=== PATIENT | male | born 1975 | race Two or more races ===

== ENCOUNTER 2020-05-06 15:40 | Inpatient (IN) | payer OTHER ==
[2020-05-06 16:27] VITALS: BMI 31.3
[2020-05-06] MEDS ORDERED: ONDANSETRON *ODT* 4 MG TABLET SL PRN (21:02)
[2020-05-06] MEDS ORDERED: MAGNESIUM CITRATE 300 ML BOTTLE PO PRN (21:02)
[2020-05-06] MEDS ORDERED: MENTHOL/PHENOL 1 EACH UD MM PRN (21:02)
[2020-05-06] MEDS ORDERED: guaiFENesin 200 MG/10 ML 10 ML UNIT-DOSE CUPS PO PRN (21:02)
[2020-05-06] MEDS ORDERED: P-EPHED 60MG/TRIPROLIDI 2.5MG TABLET PO PRN (21:02)
[2020-05-06] MEDS ORDERED: MAG HYDROX/AL HYDROX/SIMETH 30 ML UNIT-DOSE CUP PO PRN (21:02)
[2020-05-06] MEDS ORDERED: METHOCARBAMOL 500 MG TABLET PO PRN (21:02)
[2020-05-06] MEDS ORDERED: chlordiazePOXIDE HCL 25 MG CAPSULE PO PRN (21:02)
[2020-05-06] MEDS ORDERED: IBUPROFEN 400 MG TABLET (FP) PO PRN (21:02)
[2020-05-06] MEDS ORDERED: MAGNESIUM HYDROX 2400MG/30ML ORAL SUSPENSION 30 ML CUP PO PRN (21:02)
[2020-05-06] MEDS ORDERED: BISMUTH SUBSALICYLATE 524 MG/30 ML UD PO PRN (21:02)
[2020-05-06] MEDS ORDERED: DICYCLOMINE HCL 10 MG CAPSULE PO PRN (21:02)
[2020-05-06] MEDS ORDERED: ACETAMINOPHEN 325 MG TABLET (FP) PO PRN ×2 (21:02)
[2020-05-06] MEDS ORDERED: chlordiazePOXIDE HCL 25 MG CAPSULE PO ONE (21:07)
[2020-05-06] MEDS: MELATONIN 5 MG TABLETS PO SCH (21:58)
[2020-05-06] MEDS: hydrOXYzine PAMOATE 25 MG CAPSULE (FP) PO SCH (21:59)
[2020-05-06] MEDS: THIAMINE HCL 100 MG TABLET (FP) PO SCH (21:59)
[2020-05-06] MEDS: chlordiazePOXIDE HCL 25 MG CAPSULE PO SCH (22:50)
[2020-05-07] MEDS: hydrOXYzine PAMOATE 25 MG CAPSULE (FP) PO SCH ×5 (05:20→22:33)
[2020-05-07] MEDS: chlordiazePOXIDE HCL 25 MG CAPSULE PO SCH ×4 (05:20→22:33)
[2020-05-07 09:52] LABS: POTASSIUM 3.3 mmol/L (3.5-5.1)
[2020-05-07 09:57] LABS: CALCIUM 9.1 mg/dL (8.5-10.1); HEMATOCRIT 40.5 % (35.4-49); HEMOGLOBIN 14.2 GM/dL (11.7-16.9); MCH 30.1 pg (25.7-33.7); MEAN CELL VOLUME 85.9 fl (80-96); MEAN PLT VOLUME 8.1 fl (7.5-11.1); PLATELET COUNT 185 K/MM3 (134-434); RBC 4.71 M/mm3 (4.00-5.60); RDW 14.4 % (11.9-15.9); WHITE BLOOD COUNT 6.2 K/mm3 (4.0-10.0)
[2020-05-07 09:58] LABS: ALBUMIN 3.6 g/dl (3.4-5.0); PH,URINE 5.5 (5.0-8.0); URINE APPEARANCE CLOUDY; URINE BILIRUBIN 1+ (NEGATIVE); URINE COLOR DK YELLOW; URINE GLUCOSE (UA) NEGATIVE (NEGATIVE); URINE KETONE TRACE (NEGATIVE); URINE LEUK ESTERASE NEGATIVE (NEGATIVE); URINE NITRITE NEGATIVE (NEGATIVE); URINE PROTEIN NEGATIVE (NEGATIVE)
[2020-05-07 10:02] LABS: CREATININE 0.9 mg/dL (0.55-1.3)
[2020-05-07 10:04] LABS: BILIRUBIN,TOTAL 1.1 mg/dL (0.2-1)
[2020-05-07] MEDS: PRENATAL VITAMINS W/ FOLIC ACID TABLET (FP) PO SCH (10:39)
[2020-05-07 11:01] LABS: HIV INTERPRETATION NEGATIVE (NEGATIVE)
[2020-05-07] MEDS ORDERED: POTASSIUM CHLORIDE TABS 20 MEQ TABLET.ER (FP) PO ONE ×2 (14:00→18:00)
[2020-05-07] MEDS: MELATONIN 5 MG TABLETS PO SCH (22:33)
[2020-05-07] MEDS: THIAMINE HCL 100 MG TABLET (FP) PO SCH (22:33)
[2020-05-07] MEDS: ARIPiprazole 2 MG TABLET PO SCH (22:33)
[2020-05-08] MEDS: chlordiazePOXIDE HCL 25 MG CAPSULE PO SCH ×4 (05:51→22:01)
[2020-05-08] MEDS: hydrOXYzine PAMOATE 25 MG CAPSULE (FP) PO SCH ×5 (05:52→22:00)
[2020-05-08] MEDS: PRENATAL VITAMINS W/ FOLIC ACID TABLET (FP) PO SCH (10:35)
[2020-05-08] MEDS: FLUoxetine HCL 20 MG CAPSULE PO SCH (10:35)
[2020-05-08] MEDS: ARIPiprazole 2 MG TABLET PO SCH (22:01)
[2020-05-08] MEDS: THIAMINE HCL 100 MG TABLET (FP) PO SCH (22:01)
[2020-05-08] MEDS: MELATONIN 5 MG TABLETS PO SCH (22:01)
[2020-05-09] MEDS ORDERED: chlordiazePOXIDE HCL 10 MG CAPSULE PO PRN
[2020-05-09] MEDS: chlordiazePOXIDE HCL 10 MG CAPSULE PO SCH ×4 (05:41→22:19)
[2020-05-09] MEDS: hydrOXYzine PAMOATE 25 MG CAPSULE (FP) PO SCH ×5 (05:41→22:19)
[2020-05-09] MEDS: PRENATAL VITAMINS W/ FOLIC ACID TABLET (FP) PO SCH (10:10)
[2020-05-09] MEDS: FLUoxetine HCL 20 MG CAPSULE PO SCH (10:10)
[2020-05-09] MEDS: THIAMINE HCL 100 MG TABLET (FP) PO SCH (22:20)
[2020-05-09] MEDS: MELATONIN 5 MG TABLETS PO SCH (22:20)
[2020-05-09] MEDS: ARIPiprazole 2 MG TABLET PO SCH (22:20)
[2020-05-10] MEDS ORDERED: chlordiazePOXIDE HCL 10 MG CAPSULE PO ONE (05:00)
[2020-05-10] MEDS ORDERED: chlordiazePOXIDE HCL 10 MG CAPSULE PO SCH (05:00)
[2020-05-10] MEDS: hydrOXYzine PAMOATE 25 MG CAPSULE (FP) PO SCH ×2 (05:49→07:38)
[2020-05-10 09:55] VITALS: BP 100/71; PULSE 99; TEMP 97.6
[2020-05-11] MEDS ORDERED: chlordiazePOXIDE HCL 10 MG CAPSULE PO ONE (05:00)
== END 2020-05-10 09:08 | disposition home or self-care (01) | DRG 773 ==
LOC: YASAS 15:40 → Y3N 18:57
PROVIDERS: ADMIT Allergy & Immunology; ATTEND Allergy & Immunology
PROC: HZ2ZZZZ Detoxification Services for Substance Abuse Treatment (ICD-10-PCS; principal; 2020-05-06)
DX: F10.230 Alcohol dependence with withdrawal, uncomplicated (principal); F11.10 Opioid abuse, uncomplicated; F19.24 Other psychoactive substance dependence with psychoactive substance-induced mood disorder; F32.9 Major depressive disorder, single episode, unspecified; E87.6 Hypokalemia; G40.509 Epileptic seizures related to external causes, not intractable, without status epilepticus; R25.3 Fasciculation; Z98.890 Other specified postprocedural states; Z56.0 Unemployment, unspecified
CPT/HCPCS: 36415; 80053; 81003; 84132; 85027; 86593; 86780; 87389; 93005; 93010; C9803; Q0162; U0003

== ENCOUNTER 2020-05-24 11:46 | Inpatient (IN) | payer OTHER ==
[2020-05-24 14:18] VITALS: BMI 33.2
[2020-05-24] MEDS ORDERED: MENTHOL/PHENOL 1 EACH UD MM PRN (14:46)
[2020-05-24] MEDS ORDERED: NICOTINE POLACRILEX 2 MG GUM BUC PRN (14:46)
[2020-05-24] MEDS ORDERED: ACETAMINOPHEN 325 MG TABLET (FP) PO PRN ×2 (14:46)
[2020-05-24] MEDS ORDERED: IBUPROFEN 400 MG TABLET (FP) PO PRN (14:46)
[2020-05-24] MEDS ORDERED: BISMUTH SUBSALICYLATE 262 MG/15 ML BTL PO PRN (14:46)
[2020-05-24] MEDS ORDERED: chlordiazePOXIDE HCL 25 MG CAPSULE PO PRN (14:46)
[2020-05-24] MEDS ORDERED: MAGNESIUM CITRATE 300 ML BOTTLE PO PRN (14:46)
[2020-05-24] MEDS ORDERED: MAGNESIUM HYDROX 2400MG/30ML ORAL SUSPENSION 30 ML CUP PO PRN (14:46)
[2020-05-24] MEDS ORDERED: METHOCARBAMOL 500 MG TABLET PO PRN (14:46)
[2020-05-24] MEDS ORDERED: MAG HYDROX/AL HYDROX/SIMETH 30 ML UNIT-DOSE CUP PO PRN (14:46)
[2020-05-24] MEDS ORDERED: ONDANSETRON *ODT* 4 MG TABLET SL PRN (14:46)
[2020-05-24] MEDS: PRENATAL VITAMINS W/ FOLIC ACID TABLET (FP) PO SCH (15:39)
[2020-05-24] MEDS: levETIRAcetam 500 MG TABLET (FP) PO SCH (15:48)
[2020-05-24] MEDS: hydrOXYzine PAMOATE 25 MG CAPSULE (FP) PO SCH ×2 (17:59→22:38)
[2020-05-24] MEDS: chlordiazePOXIDE HCL 25 MG CAPSULE PO SCH ×2 (17:59→22:37)
[2020-05-24 18:03] LABS: POTASSIUM 3.6 mmol/L (3.5-5.1)
[2020-05-24 18:06] LABS: ALBUMIN 4.1 g/dl (3.4-5.0); BLOOD UREA NITROGEN 9.9 mg/dL (7-18); CALCIUM 8.7 mg/dL (8.5-10.1)
[2020-05-24 18:08] LABS: CREATININE 0.9 mg/dL (0.55-1.3); HEMATOCRIT 46.7 % (35.4-49); HEMOGLOBIN 16.2 GM/dL (11.7-16.9); MCHC 34.6 g/dl (32.0-35.9); MEAN CELL VOLUME 86.7 fl (80-96); MEAN PLT VOLUME 7.9 fl (7.5-11.1); PLATELET COUNT 335 K/MM3 (134-434); RBC 5.38 M/mm3 (4.00-5.60); RDW 14.8 % (11.9-15.9); WHITE BLOOD COUNT 8.1 K/mm3 (4.0-10.0)
[2020-05-24 18:11] LABS: BILIRUBIN,TOTAL 0.3 mg/dL (0.2-1); TOT PROT 8.1 g/dl (6.4-8.2)
[2020-05-24] MEDS: THIAMINE HCL 100 MG TABLET (FP) PO SCH (22:38)
[2020-05-24] MEDS: MELATONIN 5 MG TABLETS PO SCH (22:38)
[2020-05-25] MEDS: hydrOXYzine PAMOATE 25 MG CAPSULE (FP) PO SCH ×5 (05:50→22:45)
[2020-05-25] MEDS: chlordiazePOXIDE HCL 25 MG CAPSULE PO SCH ×4 (05:50→22:46)
[2020-05-25] MEDS: levETIRAcetam 500 MG TABLET (FP) PO SCH (10:21)
[2020-05-25] MEDS: PRENATAL VITAMINS W/ FOLIC ACID TABLET (FP) PO SCH (10:25)
[2020-05-25] MEDS: FLUoxetine HCL 20 MG CAPSULE PO SCH (11:28)
[2020-05-25] MEDS ORDERED: ARIPiprazole 2 MG TABLET PO SCH (22:00)
[2020-05-25] MEDS: MELATONIN 5 MG TABLETS PO SCH (22:45)
[2020-05-25] MEDS: THIAMINE HCL 100 MG TABLET (FP) PO SCH (22:46)
[2020-05-26] MEDS: hydrOXYzine PAMOATE 25 MG CAPSULE (FP) PO SCH ×2 (05:46→09:24)
[2020-05-26] MEDS: chlordiazePOXIDE HCL 25 MG CAPSULE PO SCH ×2 (05:47→10:02)
[2020-05-26] MEDS: levETIRAcetam 500 MG TABLET (FP) PO SCH (09:23)
[2020-05-26] MEDS: FLUoxetine HCL 20 MG CAPSULE PO SCH (09:23)
[2020-05-26] MEDS: PRENATAL VITAMINS W/ FOLIC ACID TABLET (FP) PO SCH (09:24)
[2020-05-26 09:37] VITALS: BP 118/77; PULSE 102; TEMP 98.2
[2020-05-26] MEDS ORDERED: MASKS NR ONE (09:50)
[2020-05-27] MEDS ORDERED: chlordiazePOXIDE HCL 10 MG CAPSULE PO PRN
[2020-05-27] MEDS ORDERED: chlordiazePOXIDE HCL 10 MG CAPSULE PO SCH (05:00)
[2020-05-28] MEDS ORDERED: chlordiazePOXIDE HCL 10 MG CAPSULE PO SCH (05:00)
[2020-05-29] MEDS ORDERED: chlordiazePOXIDE HCL 10 MG CAPSULE PO ONE (05:00)
== END 2020-05-26 10:08 | disposition left against medical advice (07) | DRG 770 ==
LOC: YASAS 11:46 → Y6N 14:49
PROVIDERS: ADMIT Allergy & Immunology; ATTEND Allergy & Immunology
PROC: HZ2ZZZZ Detoxification Services for Substance Abuse Treatment (ICD-10-PCS; principal; 2020-05-24)
DX: F10.230 Alcohol dependence with withdrawal, uncomplicated (principal); F10.282 Alcohol dependence with alcohol-induced sleep disorder; F10.24 Alcohol dependence with alcohol-induced mood disorder; F33.2 Major depressive disorder, recurrent severe without psychotic features; R56.1 Post traumatic seizures; Z87.81 Personal history of (healed) traumatic fracture; Z86.11 Personal history of tuberculosis; Z56.0 Unemployment, unspecified; Z59.0 Homelessness
CPT/HCPCS: 36415; 80053; 80177; 85027; 86593; 86780; C9803; U0003

== ENCOUNTER 2020-07-05 13:28 | Inpatient (IN) | payer OTHER ==
[2020-07-05 14:38] VITALS: BMI 32.6
[2020-07-05] MEDS ORDERED: chlordiazePOXIDE HCL 25 MG CAPSULE ONE ×2 (14:49→20:39)
[2020-07-05] MEDS ORDERED: chlordiazePOXIDE HCL 25 MG CAPSULE PO ONE (14:52)
[2020-07-05] MEDS ORDERED: MAGNESIUM CITRATE 300 ML BOTTLE PO PRN (20:31)
[2020-07-05] MEDS ORDERED: chlordiazePOXIDE HCL 25 MG CAPSULE PO PRN (20:31)
[2020-07-05] MEDS ORDERED: ONDANSETRON *ODT* 4 MG TABLET SL PRN (20:31)
[2020-07-05] MEDS ORDERED: guaiFENesin 200 MG/10 ML 10 ML UNIT-DOSE CUPS PO PRN (20:31)
[2020-07-05] MEDS ORDERED: BISMUTH SUBSALICYLATE 524 MG/30 ML UD PO PRN (20:31)
[2020-07-05] MEDS ORDERED: MAG HYDROX/AL HYDROX/SIMETH 30 ML UNIT-DOSE CUP PO PRN (20:31)
[2020-07-05] MEDS ORDERED: P-EPHED 60MG/TRIPROLIDI 2.5MG TABLET PO PRN (20:31)
[2020-07-05] MEDS ORDERED: MENTHOL/PHENOL 1 EACH UD MM PRN (20:31)
[2020-07-05] MEDS ORDERED: MAGNESIUM HYDROX 2400MG/30ML ORAL SUSPENSION 30 ML CUP PO PRN (20:31)
[2020-07-05] MEDS ORDERED: DICYCLOMINE HCL 10 MG CAPSULE PO PRN (20:31)
[2020-07-05] MEDS ORDERED: ACETAMINOPHEN 325 MG TABLET (FP) PO PRN ×2 (20:31)
[2020-07-05] MEDS: THIAMINE HCL 100 MG TABLET (FP) PO SCH (22:16)
[2020-07-05] MEDS: MELATONIN 5 MG TABLETS PO SCH (22:16)
[2020-07-05] MEDS: chlordiazePOXIDE HCL 25 MG CAPSULE PO SCH (22:16)
[2020-07-06] MEDS: chlordiazePOXIDE HCL 25 MG CAPSULE PO SCH ×4 (05:20→22:21)
[2020-07-06] MEDS: PRENATAL VITAMINS W/ FOLIC ACID TABLET (FP) PO SCH (10:21)
[2020-07-06] MEDS: IBUPROFEN 400 MG TABLET (FP) PO PRN (17:38)
[2020-07-06] MEDS: MELATONIN 5 MG TABLETS PO SCH (22:21)
[2020-07-06] MEDS: THIAMINE HCL 100 MG TABLET (FP) PO SCH (22:21)
[2020-07-07] MEDS: chlordiazePOXIDE HCL 25 MG CAPSULE PO SCH ×4 (05:26→22:09)
[2020-07-07] MEDS: PRENATAL VITAMINS W/ FOLIC ACID TABLET (FP) PO SCH (10:33)
[2020-07-07] MEDS ORDERED: chlordiazePOXIDE HCL 10 MG CAPSULE PO SCH (17:00)
[2020-07-07] MEDS: THIAMINE HCL 100 MG TABLET (FP) PO SCH (22:09)
[2020-07-07] MEDS: MELATONIN 5 MG TABLETS PO SCH (22:09)
[2020-07-08] MEDS ORDERED: chlordiazePOXIDE HCL 10 MG CAPSULE PO PRN
[2020-07-08] MEDS ORDERED: chlordiazePOXIDE HCL 10 MG CAPSULE PO SCH ×2 (05:00→22:00)
[2020-07-08] MEDS: chlordiazePOXIDE HCL 10 MG CAPSULE PO SCH ×2 (05:38→17:45)
[2020-07-08] MEDS: PRENATAL VITAMINS W/ FOLIC ACID TABLET (FP) PO SCH (10:18)
[2020-07-08] MEDS: METHOCARBAMOL 500 MG TABLET PO PRN ×2 (10:19→17:44)
[2020-07-08] MEDS: MELATONIN 5 MG TABLETS PO SCH (21:36)
[2020-07-08] MEDS: THIAMINE HCL 100 MG TABLET (FP) PO SCH (21:36)
[2020-07-09] MEDS ORDERED: chlordiazePOXIDE HCL 10 MG CAPSULE PO SCH (05:00)
[2020-07-09] MEDS ORDERED: chlordiazePOXIDE HCL 10 MG CAPSULE PO ONE (05:00)
[2020-07-09 06:23] VITALS: BP 120/82; PULSE 77; TEMP 98.2
[2020-07-09 10:06] LABS: SARS-CoV-2 NAA Not Detected (Not Detected)
[2020-07-09] MEDS: PRENATAL VITAMINS W/ FOLIC ACID TABLET (FP) PO SCH (10:31)
[2020-07-09] MEDS: IBUPROFEN 400 MG TABLET (FP) PO PRN (10:31)
[2020-07-10] MEDS ORDERED: chlordiazePOXIDE HCL 10 MG CAPSULE PO ONE (05:00)
== END 2020-07-09 11:47 | disposition home or self-care (01) | DRG 775 ==
LOC: YASAS 13:28 → Y3N 20:37
PROVIDERS: ADMIT Allergy & Immunology; ATTEND Allergy & Immunology
PROC: HZ2ZZZZ Detoxification Services for Substance Abuse Treatment (ICD-10-PCS; principal; 2020-07-05)
DX: F10.230 Alcohol dependence with withdrawal, uncomplicated (principal); F10.282 Alcohol dependence with alcohol-induced sleep disorder; F10.24 Alcohol dependence with alcohol-induced mood disorder; E83.51 Hypocalcemia; G40.509 Epileptic seizures related to external causes, not intractable, without status epilepticus; R74.01 Elevation of levels of liver transaminase levels; R25.3 Fasciculation; R73.9 Hyperglycemia, unspecified; R45.89 Other symptoms and signs involving emotional state; Z86.19 Personal history of other infectious and parasitic diseases; Z91.14 Patient's other noncompliance with medication regimen
CPT/HCPCS: 36415; 71046-TC-FY; 80053; 83735; 84484; 85025; 86593; 86780; 93005; 93010; C9803; U0003; U0005

== ENCOUNTER 2020-08-07 14:18 | Inpatient (IN) | payer OTHER ==
[2020-08-07 15:53] VITALS: BMI 32.1
[2020-08-07] MEDS ORDERED: chlordiazePOXIDE HCL 25 MG CAPSULE PO SCH (17:00)
[2020-08-07] MEDS ORDERED: MAGNESIUM CITRATE 300 ML BOTTLE PO PRN (17:18)
[2020-08-07] MEDS ORDERED: IBUPROFEN 400 MG TABLET (FP) PO PRN (17:18)
[2020-08-07] MEDS ORDERED: BISMUTH SUBSALICYLATE 524 MG/30 ML PO PRN (17:18)
[2020-08-07] MEDS ORDERED: ONDANSETRON *ODT* 4 MG TABLET SL PRN (17:18)
[2020-08-07] MEDS ORDERED: METHOCARBAMOL 500 MG TABLET PO PRN (17:18)
[2020-08-07] MEDS ORDERED: MAGNESIUM HYDROX 2400MG/30ML ORAL SUSPENSION 30 ML CUP PO PRN (17:18)
[2020-08-07] MEDS ORDERED: MAG HYDROX/AL HYDROX/SIMETH 30 ML UNIT-DOSE CUP PO PRN (17:18)
[2020-08-07] MEDS ORDERED: MENTHOL/PHENOL 1 EACH UD MM PRN (17:18)
[2020-08-07] MEDS ORDERED: ACETAMINOPHEN 325 MG TABLET (FP) PO PRN ×2 (17:18)
[2020-08-07] MEDS ORDERED: chlordiazePOXIDE HCL 25 MG CAPSULE PO PRN (17:19)
[2020-08-07] MEDS ORDERED: diazePAM 5 MG TABLET PO PRN (19:11)
[2020-08-07] MEDS ORDERED: diazePAM 5 MG TABLET PO ONE (19:30)
[2020-08-07] MEDS: MELATONIN 5 MG TABLETS PO SCH (22:27)
[2020-08-07] MEDS: THIAMINE HCL 100 MG TABLET (FP) PO SCH (22:27)
[2020-08-07] MEDS: diazePAM 5 MG TABLET PO SCH (22:28)
[2020-08-08] MEDS: diazePAM 5 MG TABLET PO SCH ×4 (05:31→22:19)
[2020-08-08 10:27] LABS: HEMATOCRIT 40.4 % (35.4-49); MCH 30.6 pg (25.7-33.7); MCHC 34.6 g/dl (32.0-35.9); MEAN CELL VOLUME 88.4 fl (80-96); MEAN PLT VOLUME 8.2 fl (7.5-11.1); PLATELET COUNT 186 K/MM3 (134-434); RBC 4.57 M/mm3 (4.00-5.60); RDW 14.7 % (11.9-15.9); WHITE BLOOD COUNT 6.9 K/mm3 (4.0-10.0)
[2020-08-08 10:48] LABS: ALBUMIN 3.6 g/dl (3.4-5.0)
[2020-08-08 10:51] LABS: BLOOD UREA NITROGEN 11.6 mg/dL (7-18); CALCIUM 8.8 mg/dL (8.5-10.1)
[2020-08-08 10:52] LABS: CREATININE 0.8 mg/dL (0.55-1.3)
[2020-08-08 10:53] LABS: BILIRUBIN,TOTAL 0.8 mg/dL (0.2-1); TOT PROT 7.1 g/dl (6.4-8.2)
[2020-08-08] MEDS: PRENATAL VITAMINS W/ FOLIC ACID TABLET (FP) PO SCH (11:14)
[2020-08-08] MEDS: levETIRAcetam 500 MG TABLET (FP) PO SCH (11:14)
[2020-08-08] MEDS: FLUoxetine HCL 20 MG CAPSULE PO SCH (13:11)
[2020-08-08] MEDS: ARIPiprazole 2 MG TABLET PO SCH (22:18)
[2020-08-08] MEDS: THIAMINE HCL 100 MG TABLET (FP) PO SCH (22:18)
[2020-08-08] MEDS: MELATONIN 5 MG TABLETS PO SCH (22:18)
[2020-08-09] MEDS ORDERED: chlordiazePOXIDE HCL 25 MG CAPSULE PO SCH (05:00)
[2020-08-09] MEDS: diazePAM 5 MG TABLET PO SCH ×3 (05:16→22:05)
[2020-08-09] MEDS: PRENATAL VITAMINS W/ FOLIC ACID TABLET (FP) PO SCH (10:27)
[2020-08-09] MEDS: levETIRAcetam 500 MG TABLET (FP) PO SCH (10:28)
[2020-08-09] MEDS: FLUoxetine HCL 20 MG CAPSULE PO SCH (10:28)
[2020-08-09] MEDS ORDERED: BACITRACIN 15 GM TUBE TOPICAL OINTMENT TP SCH (22:00)
[2020-08-09] MEDS: BACITRACIN 0.9 GM PACKET TP SCH (22:05)
[2020-08-09] MEDS: MELATONIN 5 MG TABLETS PO SCH (22:05)
[2020-08-09] MEDS: ARIPiprazole 2 MG TABLET PO SCH (22:05)
[2020-08-09] MEDS: THIAMINE HCL 100 MG TABLET (FP) PO SCH (22:05)
[2020-08-10] MEDS ORDERED: chlordiazePOXIDE HCL 10 MG CAPSULE PO PRN
[2020-08-10] MEDS ORDERED: chlordiazePOXIDE HCL 10 MG CAPSULE PO SCH (05:00)
[2020-08-10] MEDS: diazePAM 5 MG TABLET PO SCH ×2 (05:54→17:42)
[2020-08-10] MEDS: FLUoxetine HCL 20 MG CAPSULE PO SCH (10:55)
[2020-08-10] MEDS: BACITRACIN 0.9 GM PACKET TP SCH ×2 (10:55→22:19)
[2020-08-10] MEDS: PRENATAL VITAMINS W/ FOLIC ACID TABLET (FP) PO SCH (10:55)
[2020-08-10] MEDS: levETIRAcetam 500 MG TABLET (FP) PO SCH (10:55)
[2020-08-10] MEDS: MELATONIN 5 MG TABLETS PO SCH (22:19)
[2020-08-10] MEDS: ARIPiprazole 2 MG TABLET PO SCH (22:19)
[2020-08-10] MEDS: THIAMINE HCL 100 MG TABLET (FP) PO SCH (22:19)
[2020-08-11] MEDS ORDERED: chlordiazePOXIDE HCL 10 MG CAPSULE PO SCH (05:00)
[2020-08-11] MEDS ORDERED: diazePAM 5 MG TABLET PO ONE (06:00)
[2020-08-11 06:16] VITALS: BP 110/79; PULSE 69; TEMP 98.9
[2020-08-11] MEDS: levETIRAcetam 500 MG TABLET (FP) PO SCH (09:00)
[2020-08-11] MEDS: FLUoxetine HCL 20 MG CAPSULE PO SCH (09:00)
[2020-08-11] MEDS: PRENATAL VITAMINS W/ FOLIC ACID TABLET (FP) PO SCH (09:02)
[2020-08-12] MEDS ORDERED: chlordiazePOXIDE HCL 10 MG CAPSULE PO ONE (05:00)
== END 2020-08-11 09:18 | disposition home or self-care (01) | DRG 775 ==
LOC: YASAS 14:18 → Y6N 17:15
PROVIDERS: ADMIT Allergy & Immunology; ATTEND Allergy & Immunology
PROC: HZ2ZZZZ Detoxification Services for Substance Abuse Treatment (ICD-10-PCS; principal; 2020-08-07)
DX: F10.230 Alcohol dependence with withdrawal, uncomplicated (principal); F10.282 Alcohol dependence with alcohol-induced sleep disorder; F10.24 Alcohol dependence with alcohol-induced mood disorder; F33.2 Major depressive disorder, recurrent severe without psychotic features; G40.909 Epilepsy, unspecified, not intractable, without status epilepticus; S40.211A Abrasion of right shoulder, initial encounter; Z91.81 History of falling; Z87.820 Personal history of traumatic brain injury; Z86.19 Personal history of other infectious and parasitic diseases; Z98.890 Other specified postprocedural states; Z56.0 Unemployment, unspecified; Z59.0 Homelessness
CPT/HCPCS: 36415; 80053; 85027; 86593; 86780; C9803; U0003; U0005

== ENCOUNTER 2020-09-04 12:17 | Inpatient (IN) | payer OTHER ==
[2020-09-04 12:55] VITALS: BMI 33.9
[2020-09-04] MEDS ORDERED: MENTHOL/PHENOL 1 EACH UD MM PRN (14:56)
[2020-09-04] MEDS ORDERED: MAG HYDROX/AL HYDROX/SIMETH 30 ML UNIT-DOSE CUP PO PRN (14:56)
[2020-09-04] MEDS ORDERED: NICOTINE POLACRILEX 2 MG GUM BUC PRN (14:56)
[2020-09-04] MEDS ORDERED: ACETAMINOPHEN 325 MG TABLET (FP) PO PRN ×2 (14:56)
[2020-09-04] MEDS ORDERED: IBUPROFEN 400 MG TABLET (FP) PO PRN (14:56)
[2020-09-04] MEDS ORDERED: BISMUTH SUBSALICYLATE 262 MG/15 ML BTL PO PRN (14:56)
[2020-09-04] MEDS ORDERED: MAGNESIUM CITRATE 300 ML BOTTLE PO PRN (14:56)
[2020-09-04] MEDS ORDERED: METHOCARBAMOL 500 MG TABLET PO PRN (14:56)
[2020-09-04] MEDS ORDERED: MAGNESIUM HYDROX 2400MG/30ML ORAL SUSPENSION 30 ML CUP PO PRN (14:56)
[2020-09-04] MEDS ORDERED: ONDANSETRON *ODT* 4 MG TABLET SL PRN (14:56)
[2020-09-04] MEDS: diazePAM 5 MG TABLET PO PRN (15:47)
[2020-09-04] MEDS: PRENATAL VITAMINS W/ FOLIC ACID TABLET (FP) PO SCH (15:48)
[2020-09-04] MEDS: diazePAM 5 MG TABLET PO SCH ×2 (17:20→22:16)
[2020-09-04] MEDS: hydrOXYzine PAMOATE 25 MG CAPSULE (FP) PO SCH ×2 (17:22→22:15)
[2020-09-04] MEDS ORDERED: MELATONIN 5 MG TABLETS PO SCH (22:00)
[2020-09-04] MEDS: levETIRAcetam 500 MG TABLET (FP) PO SCH (22:14)
[2020-09-04] MEDS: THIAMINE HCL 100 MG TABLET (FP) PO SCH (22:15)
[2020-09-04] MEDS: ARIPiprazole 2 MG TABLET PO SCH (22:44)
[2020-09-05] MEDS: hydrOXYzine PAMOATE 25 MG CAPSULE (FP) PO SCH ×5 (05:27→22:24)
[2020-09-05] MEDS: diazePAM 5 MG TABLET PO SCH ×4 (05:28→22:23)
[2020-09-05] MEDS: PRENATAL VITAMINS W/ FOLIC ACID TABLET (FP) PO SCH (10:13)
[2020-09-05] MEDS: FLUoxetine HCL 20 MG CAPSULE PO SCH (10:14)
[2020-09-05] MEDS: levETIRAcetam 500 MG TABLET (FP) PO SCH ×2 (10:14→22:23)
[2020-09-05 10:44] LABS: HEMATOCRIT 42.4 % (35.4-49); HEMOGLOBIN 14.1 GM/dL (11.7-16.9); MCH 29.7 pg (25.7-33.7); MCHC 33.2 g/dl (32.0-35.9); MEAN CELL VOLUME 89.5 fl (80-96); MEAN PLT VOLUME 8.2 fl (7.5-11.1); PLATELET COUNT 204 10^3/uL (134-434); RBC 4.73 M/mm3 (4.00-5.60); RDW 14.8 % (11.9-15.9); WHITE BLOOD COUNT 5.5 K/mm3 (4.0-10.0)
[2020-09-05 11:18] LABS: BLOOD UREA NITROGEN 9.7 mg/dL (7-18)
[2020-09-05 11:33] LABS: ALBUMIN 3.8 g/dl (3.4-5.0); CALCIUM 8.9 mg/dL (8.5-10.1)
[2020-09-05 11:36] LABS: CREATININE 0.9 mg/dL (0.55-1.3)
[2020-09-05 11:41] LABS: TOT PROT 7.1 g/dl (6.4-8.2)
[2020-09-05 11:57] LABS: BILIRUBIN,TOTAL 1.2 mg/dL (0.2-1)
[2020-09-05 11:58] LABS: HIV INTERPRETATION NEGATIVE (NEGATIVE)
[2020-09-05] MEDS ORDERED: PNEUMOCOCCAL 23 VACCINE 0.5 ML VIAL IM ONE (12:00)
[2020-09-05] MEDS ORDERED: PNEUMOC 13-VAL CONJ-DIP CRM/PF 0.5 ML DISP.SYRIN IM ONE (12:00)
[2020-09-05] MEDS ORDERED: FLU VACCINE (FLULAVAL) PF 60 MCG/0.5 ML SYRINGE 2020-2021 IM ONE (12:00)
[2020-09-05] MEDS: THIAMINE HCL 100 MG TABLET (FP) PO SCH (22:23)
[2020-09-05] MEDS: ARIPiprazole 2 MG TABLET PO SCH (22:23)
[2020-09-05] MEDS: SUVOREXANT 10 MG TABLET PO PRN (22:26)
[2020-09-06] MEDS: hydrOXYzine PAMOATE 25 MG CAPSULE (FP) PO SCH ×2 (05:36→09:56)
[2020-09-06] MEDS: diazePAM 5 MG TABLET PO SCH ×3 (05:37→22:08)
[2020-09-06] MEDS: levETIRAcetam 500 MG TABLET (FP) PO SCH ×2 (09:55→22:08)
[2020-09-06] MEDS: PRENATAL VITAMINS W/ FOLIC ACID TABLET (FP) PO SCH (09:55)
[2020-09-06] MEDS: diazePAM 5 MG TABLET PO PRN ×2 (09:55→17:49)
[2020-09-06] MEDS: FLUoxetine HCL 20 MG CAPSULE PO SCH (09:55)
[2020-09-06] MEDS ORDERED: hydrOXYzine PAMOATE 25 MG CAPSULE (FP) PO PRN (10:54)
[2020-09-06] MEDS: ARIPiprazole 2 MG TABLET PO SCH (22:08)
[2020-09-06] MEDS: SUVOREXANT 10 MG TABLET PO PRN (22:09)
[2020-09-06] MEDS: THIAMINE HCL 100 MG TABLET (FP) PO SCH (22:09)
[2020-09-07] MEDS ORDERED: diazePAM 5 MG TABLET PO SCH (06:00)
[2020-09-07 09:07] VITALS: BP 137/92; PULSE 84; TEMP 97.1
[2020-09-07] MEDS: levETIRAcetam 500 MG TABLET (FP) PO SCH (09:54)
[2020-09-07] MEDS: PRENATAL VITAMINS W/ FOLIC ACID TABLET (FP) PO SCH (09:54)
[2020-09-07] MEDS: FLUoxetine HCL 20 MG CAPSULE PO SCH (09:54)
[2020-09-08] MEDS ORDERED: diazePAM 5 MG TABLET PO ONE (06:00)
== END 2020-09-07 09:59 | disposition home or self-care (01) | DRG 775 ==
LOC: YASAS 12:17 → Y3N 14:32
PROVIDERS: ADMIT Allergy & Immunology; ATTEND Allergy & Immunology
PROC: HZ2ZZZZ Detoxification Services for Substance Abuse Treatment (ICD-10-PCS; principal; 2020-09-04)
DX: F10.230 Alcohol dependence with withdrawal, uncomplicated (principal); F19.24 Other psychoactive substance dependence with psychoactive substance-induced mood disorder; F31.81 Bipolar II disorder; G40.909 Epilepsy, unspecified, not intractable, without status epilepticus; R25.3 Fasciculation; R45.89 Other symptoms and signs involving emotional state; Z20.822 Contact with and (suspected) exposure to COVID-19; Z86.19 Personal history of other infectious and parasitic diseases; Z56.0 Unemployment, unspecified; Z87.820 Personal history of traumatic brain injury; Z87.09 Personal history of other diseases of the respiratory system
CPT/HCPCS: 36415; 80053; 85027; 86593; 86780; 87389; C9803; Q0162; U0003; U0005

== ENCOUNTER 2020-11-27 14:10 | Inpatient (IN) | payer OTHER ==
[2020-11-27 18:01] VITALS: BMI 32.8
[2020-11-27] MEDS ORDERED: MENTHOL/PHENOL 1 EACH UD MM PRN (23:27)
[2020-11-27] MEDS ORDERED: BISMUTH SUBSALICYLATE 524 MG/30 ML PO PRN (23:27)
[2020-11-27] MEDS ORDERED: ONDANSETRON *ODT* 4 MG TABLET SL PRN (23:27)
[2020-11-27] MEDS ORDERED: MAGNESIUM CITRATE 300 ML BOTTLE PO PRN (23:27)
[2020-11-27] MEDS ORDERED: hydrOXYzine PAMOATE 25 MG CAPSULE (FP) PO PRN (23:27)
[2020-11-27] MEDS ORDERED: ACETAMINOPHEN 325 MG TABLET (FP) PO PRN ×2 (23:27)
[2020-11-27] MEDS ORDERED: MAGNESIUM HYDROX 2400MG/30ML ORAL SUSPENSION 30 ML CUP PO PRN (23:27)
[2020-11-27] MEDS ORDERED: MAG HYDROX/AL HYDROX/SIMETH 30 ML UNIT-DOSE CUP PO PRN (23:27)
[2020-11-27] MEDS ORDERED: diazePAM 5 MG TABLET PO ONE (23:29)
[2020-11-28] MEDS: METHOCARBAMOL 500 MG TABLET PO PRN (01:40)
[2020-11-28] MEDS: diazePAM 5 MG TABLET PO SCH ×5 (05:26→22:18)
[2020-11-28] MEDS: PRENATAL VITAMINS W/ FOLIC ACID TABLET (FP) PO SCH (10:07)
[2020-11-28] MEDS: diazePAM 5 MG TABLET PO PRN ×2 (10:07→20:18)
[2020-11-28 13:08] LABS: HEMATOCRIT 41.1 % (35.4-49); HEMOGLOBIN 14.1 GM/dL (11.7-16.9); MCH 30.1 pg (25.7-33.7); MCHC 34.4 g/dl (32.0-35.9); MEAN CELL VOLUME 87.6 fl (80-96); PLATELET COUNT 123 10^3/uL (134-434); RBC 4.69 M/mm3 (4.00-5.60); WHITE BLOOD COUNT 8.1 K/mm3 (4.0-10.0)
[2020-11-28 13:13] LABS: ALBUMIN 3.3 g/dl (3.4-5.0); CALCIUM 8.5 mg/dL (8.5-10.1)
[2020-11-28 13:14] LABS: BLOOD UREA NITROGEN 11.1 mg/dL (7-18)
[2020-11-28 13:17] LABS: CREATININE 0.9 mg/dL (0.55-1.3)
[2020-11-28 13:18] LABS: BILIRUBIN,TOTAL 0.8 mg/dL (0.2-1); TOT PROT 6.7 g/dl (6.4-8.2)
[2020-11-28] MEDS: IBUPROFEN 400 MG TABLET (FP) PO PRN (20:19)
[2020-11-28] MEDS: THIAMINE HCL 100 MG TABLET (FP) PO SCH (22:18)
[2020-11-28] MEDS: MELATONIN 5 MG TABLETS PO SCH (22:18)
[2020-11-29] MEDS: diazePAM 5 MG TABLET PO SCH ×2 (05:38→17:53)
[2020-11-29] MEDS: PRENATAL VITAMINS W/ FOLIC ACID TABLET (FP) PO SCH (10:45)
[2020-11-29] MEDS: diazePAM 5 MG TABLET PO PRN (10:45)
[2020-11-29 13:42] LABS: HIV INTERPRETATION NEGATIVE (NEGATIVE)
[2020-11-29] MEDS: POTASSIUM CHLORIDE ORAL LIQUID 20 MEQ/15 ML PO SCH ×2 (15:30→22:29)
[2020-11-29] MEDS: IBUPROFEN 400 MG TABLET (FP) PO PRN (17:55)
[2020-11-29] MEDS: MELATONIN 5 MG TABLETS PO SCH (22:28)
[2020-11-29] MEDS: THIAMINE HCL 100 MG TABLET (FP) PO SCH (22:28)
[2020-11-30] MEDS: METHOCARBAMOL 500 MG TABLET PO PRN (05:37)
[2020-11-30] MEDS ORDERED: diazePAM 5 MG TABLET PO ONE ×2 (06:00→18:00)
[2020-11-30] MEDS: PRENATAL VITAMINS W/ FOLIC ACID TABLET (FP) PO SCH (10:32)
[2020-11-30] MEDS: POTASSIUM CHLORIDE ORAL LIQUID 20 MEQ/15 ML PO SCH (10:32)
[2020-11-30] MEDS: THIAMINE HCL 100 MG TABLET (FP) PO SCH (21:51)
[2020-11-30] MEDS: MELATONIN 5 MG TABLETS PO SCH (21:51)
[2020-11-30] MEDS: diazePAM 5 MG TABLET PO PRN (21:53)
[2020-11-30 21:55] VITALS: TEMP 97.1
[2020-12-01] MEDS ORDERED: diazePAM 5 MG TABLET PO ONE (06:00)
[2020-12-01 06:20] VITALS: BP 106/74; PULSE 71
== END 2020-12-01 09:03 | disposition home or self-care (01) | DRG 775 ==
LOC: YASAS 14:10 → Y3N 11-28 01:15
PROVIDERS: ADMIT Allergy & Immunology; ATTEND Allergy & Immunology
PROC: HZ2ZZZZ Detoxification Services for Substance Abuse Treatment (ICD-10-PCS; principal; 2020-11-28)
DX: F10.230 Alcohol dependence with withdrawal, uncomplicated (principal); R73.9 Hyperglycemia, unspecified; Z86.69 Personal history of other diseases of the nervous system and sense organs; Z86.19 Personal history of other infectious and parasitic diseases; Z86.59 Personal history of other mental and behavioral disorders; Z87.820 Personal history of traumatic brain injury
CPT/HCPCS: 36415; 80053; 82947; 83036; 84132; 85027; 87389; C9803; U0003; U0005

== ENCOUNTER 2021-01-10 15:54 | Inpatient (IN) | payer OTHER ==
[2021-01-10 18:50] VITALS: BMI 32.8
[2021-01-10] MEDS ORDERED: BISMUTH SUBSALICYLATE 524 MG/30 ML PO PRN (19:46)
[2021-01-10] MEDS ORDERED: ONDANSETRON *ODT* 4 MG TABLET SL PRN (19:46)
[2021-01-10] MEDS ORDERED: MENTHOL/PHENOL 1 EACH UD MM PRN (19:46)
[2021-01-10] MEDS ORDERED: ACETAMINOPHEN 325 MG TABLET (FP) PO PRN ×2 (19:46)
[2021-01-10] MEDS ORDERED: METHOCARBAMOL 500 MG TABLET PO PRN (19:46)
[2021-01-10] MEDS ORDERED: IBUPROFEN 400 MG TABLET (FP) PO PRN (19:46)
[2021-01-10] MEDS ORDERED: hydrOXYzine PAMOATE 25 MG CAPSULE (FP) PO PRN (19:46)
[2021-01-10] MEDS ORDERED: MAGNESIUM HYDROX 2400MG/30ML ORAL SUSPENSION 30 ML CUP PO PRN (19:46)
[2021-01-10] MEDS ORDERED: MAGNESIUM CITRATE 300 ML BOTTLE PO PRN (19:46)
[2021-01-10] MEDS ORDERED: MAG HYDROX/AL HYDROX/SIMETH 30 ML UNIT-DOSE CUP PO PRN (19:46)
[2021-01-10] MEDS: THIAMINE HCL 100 MG TABLET (FP) PO SCH (21:52)
[2021-01-10] MEDS: MELATONIN 5 MG TABLETS PO SCH (21:54)
[2021-01-10] MEDS: diazePAM 5 MG TABLET PO SCH (22:03)
[2021-01-11] MEDS: diazePAM 5 MG TABLET PO SCH ×4 (05:37→22:21)
[2021-01-11] MEDS: PRENATAL VITAMINS W/ FOLIC ACID TABLET (FP) PO SCH (10:27)
[2021-01-11 12:14] LABS: CALCIUM 8.8 mg/dL (8.5-10.1)
[2021-01-11 12:15] LABS: ALBUMIN 3.2 g/dl (3.4-5.0); BLOOD UREA NITROGEN 9.8 mg/dL (7-18)
[2021-01-11 12:18] LABS: CREATININE 0.9 mg/dL (0.55-1.3)
[2021-01-11 12:19] LABS: BILIRUBIN,TOTAL 0.3 mg/dL (0.2-1); TOT PROT 6.7 g/dl (6.4-8.2)
[2021-01-11 12:23] LABS: HEMATOCRIT 39.9 % (35.4-49); MCH 31.3 pg (25.7-33.7); MCHC 35.2 g/dl (32.0-35.9); MEAN PLT VOLUME 7.9 fl (7.5-11.1); PLATELET COUNT 232 10^3/uL (134-434); RBC 4.48 M/mm3 (4.00-5.60); RDW 14.9 % (11.9-15.9); WHITE BLOOD COUNT 7.1 K/mm3 (4.0-10.0)
[2021-01-11] MEDS: diazePAM 5 MG TABLET PO PRN (13:52)
[2021-01-11] MEDS ORDERED: QUEtiapine FUMARATE 100 MG TABLET (FP) PO SCH (22:00)
[2021-01-11] MEDS: levETIRAcetam 500 MG TABLET (FP) PO SCH (22:20)
[2021-01-11] MEDS: MELATONIN 5 MG TABLETS PO SCH (22:20)
[2021-01-11] MEDS: THIAMINE HCL 100 MG TABLET (FP) PO SCH (22:20)
[2021-01-11] MEDS: QUEtiapine FUMARATE 50 MG TABLET PO SCH (22:20)
[2021-01-12] MEDS: diazePAM 5 MG TABLET PO SCH ×3 (05:24→22:24)
[2021-01-12] MEDS: PRENATAL VITAMINS W/ FOLIC ACID TABLET (FP) PO SCH (10:02)
[2021-01-12] MEDS: levETIRAcetam 500 MG TABLET (FP) PO SCH ×2 (10:02→22:24)
[2021-01-12] MEDS: diazePAM 5 MG TABLET PO PRN (16:37)
[2021-01-12] MEDS: MELATONIN 5 MG TABLETS PO SCH (22:23)
[2021-01-12] MEDS: THIAMINE HCL 100 MG TABLET (FP) PO SCH (22:24)
[2021-01-12] MEDS: QUEtiapine FUMARATE 50 MG TABLET PO SCH (22:24)
[2021-01-13] MEDS: diazePAM 5 MG TABLET PO SCH ×2 (05:25→17:04)
[2021-01-13] MEDS: PRENATAL VITAMINS W/ FOLIC ACID TABLET (FP) PO SCH (10:20)
[2021-01-13] MEDS: diazePAM 5 MG TABLET PO PRN (10:20)
[2021-01-13] MEDS: levETIRAcetam 500 MG TABLET (FP) PO SCH ×2 (10:20→22:22)
[2021-01-13] MEDS: QUEtiapine FUMARATE 50 MG TABLET PO SCH (22:22)
[2021-01-13] MEDS: THIAMINE HCL 100 MG TABLET (FP) PO SCH (22:22)
[2021-01-13] MEDS: MELATONIN 5 MG TABLETS PO SCH (22:23)
[2021-01-14] MEDS ORDERED: diazePAM 5 MG TABLET PO ONE (06:00)
[2021-01-14] MEDS: PRENATAL VITAMINS W/ FOLIC ACID TABLET (FP) PO SCH (09:22)
[2021-01-14] MEDS: levETIRAcetam 500 MG TABLET (FP) PO SCH (09:23)
[2021-01-14 10:19] VITALS: BP 129/83; PULSE 99; TEMP 98.7
== END 2021-01-14 09:40 | disposition home or self-care (01) | DRG 775 ==
LOC: YASAS 15:54 → Y6N 20:56
PROVIDERS: ADMIT Allergy & Immunology; ATTEND Allergy & Immunology
PROC: HZ2ZZZZ Detoxification Services for Substance Abuse Treatment (ICD-10-PCS; principal; 2021-01-10)
DX: F10.230 Alcohol dependence with withdrawal, uncomplicated (principal); F10.24 Alcohol dependence with alcohol-induced mood disorder; F31.81 Bipolar II disorder; F41.8 Other specified anxiety disorders; G40.909 Epilepsy, unspecified, not intractable, without status epilepticus; G47.00 Insomnia, unspecified; A53.0 Latent syphilis, unspecified as early or late; R74.01 Elevation of levels of liver transaminase levels; Z87.820 Personal history of traumatic brain injury; Z86.19 Personal history of other infectious and parasitic diseases; Z86.59 Personal history of other mental and behavioral disorders; Z56.0 Unemployment, unspecified
CPT/HCPCS: 36415; 80053; 80177; 85027; 86593; 86780; C9803; U0003; U0005

== ENCOUNTER 2021-02-05 14:16 | Inpatient (IN) | payer OTHER ==
[2021-02-05] MEDS ORDERED: MAG HYDROX/AL HYDROX/SIMETH 30 ML UNIT-DOSE CUP PO PRN (16:03)
[2021-02-05] MEDS ORDERED: ACETAMINOPHEN 325 MG TABLET (FP) PO PRN ×2 (16:03)
[2021-02-05] MEDS ORDERED: MAGNESIUM CITRATE 300 ML BOTTLE PO PRN (16:03)
[2021-02-05] MEDS ORDERED: MENTHOL/PHENOL 1 EACH UD MM PRN (16:03)
[2021-02-05] MEDS ORDERED: METHOCARBAMOL 500 MG TABLET PO PRN (16:03)
[2021-02-05] MEDS ORDERED: BISMUTH SUBSALICYLATE 524 MG/30 ML PO PRN (16:03)
[2021-02-05] MEDS ORDERED: MAGNESIUM HYDROX 2400MG/30ML ORAL SUSPENSION 30 ML CUP PO PRN (16:03)
[2021-02-05] MEDS ORDERED: IBUPROFEN 400 MG TABLET (FP) PO PRN (16:03)
[2021-02-05] MEDS ORDERED: ONDANSETRON *ODT* 4 MG TABLET SL PRN (16:03)
[2021-02-05 16:43] VITALS: BMI 33.0
[2021-02-05] MEDS: hydrOXYzine PAMOATE 25 MG CAPSULE (FP) PO SCH ×2 (18:50→22:25)
[2021-02-05] MEDS: PRENATAL VITAMINS W/ FOLIC ACID TABLET (FP) PO SCH (18:50)
[2021-02-05] MEDS ORDERED: LORazepam 1 MG TABLET PO PRN (19:04)
[2021-02-05] MEDS ORDERED: LORazepam 2 MG TABLET PO ONE (19:04)
[2021-02-05] MEDS ORDERED: levETIRAcetam 500 MG TABLET (FP) PO SCH (22:00)
[2021-02-05] MEDS: LORazepam 2 MG TABLET PO SCH (22:25)
[2021-02-05] MEDS: levETIRAcetam 500 MG TABLET (FP) PO SCH (22:25)
[2021-02-05] MEDS: MELATONIN 5 MG TABLETS PO SCH (22:25)
[2021-02-05] MEDS: THIAMINE HCL 100 MG TABLET (FP) PO SCH (22:26)
[2021-02-06] MEDS: LORazepam 2 MG TABLET PO SCH ×4 (05:33→22:24)
[2021-02-06] MEDS: hydrOXYzine PAMOATE 25 MG CAPSULE (FP) PO SCH ×5 (05:33→22:24)
[2021-02-06] MEDS: PRENATAL VITAMINS W/ FOLIC ACID TABLET (FP) PO SCH (10:36)
[2021-02-06] MEDS: levETIRAcetam 500 MG TABLET (FP) PO SCH ×2 (10:36→22:24)
[2021-02-06 14:42] LABS: HEMATOCRIT 40.7 % (35.4-49); MCH 31.1 pg (25.7-33.7); MCHC 34.4 g/dl (32.0-35.9); MEAN CELL VOLUME 90.5 fl (80-96); MEAN PLT VOLUME 7.8 fl (7.5-11.1); PLATELET COUNT 204 10^3/uL (134-434); RDW 14.5 % (11.9-15.9); WHITE BLOOD COUNT 6.3 K/mm3 (4.0-10.0)
[2021-02-06 16:14] LABS: ALBUMIN 3.4 g/dl (3.4-5.0); BILIRUBIN,TOTAL 0.8 mg/dL (0.2-1); BLOOD UREA NITROGEN 11.8 mg/dL (7-18); CALCIUM 8.6 mg/dL (8.5-10.1); CREATININE 0.8 mg/dL (0.55-1.3); TOT PROT 6.7 g/dl (6.4-8.2)
[2021-02-06] MEDS: THIAMINE HCL 100 MG TABLET (FP) PO SCH (22:24)
[2021-02-06] MEDS: MELATONIN 5 MG TABLETS PO SCH (22:24)
[2021-02-07] MEDS: hydrOXYzine PAMOATE 25 MG CAPSULE (FP) PO SCH ×5 (05:25→22:32)
[2021-02-07] MEDS: LORazepam 1 MG TABLET PO SCH ×4 (05:26→22:34)
[2021-02-07] MEDS: levETIRAcetam 500 MG TABLET (FP) PO SCH ×2 (10:12→22:33)
[2021-02-07] MEDS: PRENATAL VITAMINS W/ FOLIC ACID TABLET (FP) PO SCH (10:12)
[2021-02-07] MEDS: THIAMINE HCL 100 MG TABLET (FP) PO SCH (22:33)
[2021-02-07] MEDS: MELATONIN 5 MG TABLETS PO SCH (22:33)
[2021-02-08] MEDS ORDERED: LORazepam 0.5 MG TABLET PO PRN
[2021-02-08] MEDS: LORazepam 0.5 MG TABLET PO SCH ×4 (05:21→22:28)
[2021-02-08] MEDS: hydrOXYzine PAMOATE 25 MG CAPSULE (FP) PO SCH ×4 (05:21→17:00)
[2021-02-08] MEDS: levETIRAcetam 500 MG TABLET (FP) PO SCH ×2 (10:08→22:29)
[2021-02-08] MEDS: PRENATAL VITAMINS W/ FOLIC ACID TABLET (FP) PO SCH (10:08)
[2021-02-08] MEDS: hydrOXYzine PAMOATE 50 MG CAPSULE (FP) PO SCH ×2 (17:52→22:29)
[2021-02-08] MEDS: MELATONIN 5 MG TABLETS PO SCH (22:29)
[2021-02-08] MEDS: THIAMINE HCL 100 MG TABLET (FP) PO SCH (22:29)
[2021-02-09] MEDS ORDERED: LORazepam 0.5 MG TABLET PO ONE (05:00)
[2021-02-09] MEDS: hydrOXYzine PAMOATE 50 MG CAPSULE (FP) PO SCH (07:02)
[2021-02-09 09:12] VITALS: BP 121/77; PULSE 111; TEMP 97.2
== END 2021-02-09 08:51 | disposition home or self-care (01) | DRG 774 ==
LOC: YASAS 14:16 → Y3N 17:32
PROVIDERS: ADMIT Allergy & Immunology; ATTEND Allergy & Immunology
PROC: HZ2ZZZZ Detoxification Services for Substance Abuse Treatment (ICD-10-PCS; principal; 2021-02-05)
DX: F10.230 Alcohol dependence with withdrawal, uncomplicated (principal); F14.10 Cocaine abuse, uncomplicated; F13.10 Sedative, hypnotic or anxiolytic abuse, uncomplicated; F34.1 Dysthymic disorder; G40.909 Epilepsy, unspecified, not intractable, without status epilepticus; Z87.820 Personal history of traumatic brain injury; Z86.19 Personal history of other infectious and parasitic diseases
CPT/HCPCS: 36415; 80053; 85027; 86593; 86780; C9803; U0003; U0005

== ENCOUNTER 2021-04-04 16:25 | Inpatient (IN) | payer OTHER ==
[2021-04-04] MEDS ORDERED: MAGNESIUM HYDROX 2400MG/30ML ORAL SUSPENSION 30 ML CUP PO PRN (18:27)
[2021-04-04] MEDS ORDERED: BISMUTH SUBSALICYLATE 524 MG/30 ML PO PRN (18:27)
[2021-04-04] MEDS ORDERED: MENTHOL/PHENOL 1 EACH UD MM PRN (18:27)
[2021-04-04] MEDS ORDERED: MAGNESIUM CITRATE 300 ML BOTTLE PO PRN (18:27)
[2021-04-04] MEDS ORDERED: MAG HYDROX/AL HYDROX/SIMETH 30 ML UNIT-DOSE CUP PO PRN (18:27)
[2021-04-04] MEDS ORDERED: ONDANSETRON *ODT* 4 MG TABLET SL PRN (18:27)
[2021-04-04] MEDS ORDERED: LORazepam 2 MG/ML SDV VIAL IM ONE (18:30)
[2021-04-04 18:52] VITALS: BMI 33.2
[2021-04-04] MEDS: MELATONIN 5 MG TABLETS PO SCH (23:49)
[2021-04-04] MEDS: THIAMINE HCL 100 MG TABLET (FP) PO SCH (23:49)
[2021-04-04] MEDS: hydrOXYzine PAMOATE 25 MG CAPSULE (FP) PO PRN (23:50)
[2021-04-04] MEDS: chlordiazePOXIDE HCL 25 MG CAPSULE PO SCH (23:50)
[2021-04-04] MEDS: METHOCARBAMOL 500 MG TABLET PO PRN (23:53)
[2021-04-05] MEDS: chlordiazePOXIDE HCL 25 MG CAPSULE PO PRN ×2 (01:39→14:59)
[2021-04-05] MEDS: chlordiazePOXIDE HCL 25 MG CAPSULE PO SCH ×4 (05:38→22:54)
[2021-04-05] MEDS: PRENATAL VITAMINS W/ FOLIC ACID TABLET (FP) PO SCH (10:12)
[2021-04-05] MEDS: levETIRAcetam 500 MG TABLET (FP) PO SCH ×2 (10:12→22:56)
[2021-04-05 13:02] LABS: MCH 29.3 pg (25.7-33.7); MCHC 33.3 g/dl (32.0-35.9); MEAN CELL VOLUME 87.9 fl (80-96); MEAN PLT VOLUME 7.9 fl (7.5-11.1); PLATELET COUNT 274 10^3/uL (134-434); RBC 5.11 M/mm3 (4.00-5.60); RDW 14.8 % (11.9-15.9); WHITE BLOOD COUNT 6.5 K/mm3 (4.0-10.0)
[2021-04-05 13:16] LABS: ALBUMIN 3.9 g/dl (3.4-5.0); BLOOD UREA NITROGEN 11.9 mg/dL (7-18); CALCIUM 9.2 mg/dL (8.5-10.1)
[2021-04-05 13:18] LABS: CREATININE 0.8 mg/dL (0.55-1.3)
[2021-04-05 13:20] LABS: BILIRUBIN,TOTAL 0.6 mg/dL (0.2-1); TOT PROT 7.4 g/dl (6.4-8.2)
[2021-04-05] MEDS: hydrOXYzine PAMOATE 25 MG CAPSULE (FP) PO PRN (18:11)
[2021-04-05] MEDS: MELATONIN 5 MG TABLETS PO SCH (22:54)
[2021-04-05] MEDS: METHOCARBAMOL 500 MG TABLET PO PRN (22:56)
[2021-04-05] MEDS: QUEtiapine FUMARATE 50 MG TABLET PO SCH (22:56)
[2021-04-05] MEDS: THIAMINE HCL 100 MG TABLET (FP) PO SCH (22:56)
[2021-04-06] MEDS: chlordiazePOXIDE HCL 25 MG CAPSULE PO SCH ×4 (05:36→22:23)
[2021-04-06] MEDS: PRENATAL VITAMINS W/ FOLIC ACID TABLET (FP) PO SCH (10:24)
[2021-04-06] MEDS: levETIRAcetam 500 MG TABLET (FP) PO SCH ×2 (10:24→22:22)
[2021-04-06] MEDS: QUEtiapine FUMARATE 50 MG TABLET PO SCH (22:22)
[2021-04-06] MEDS: THIAMINE HCL 100 MG TABLET (FP) PO SCH (22:22)
[2021-04-06] MEDS: MELATONIN 5 MG TABLETS PO SCH (22:22)
[2021-04-07] MEDS ORDERED: chlordiazePOXIDE HCL 10 MG CAPSULE PO PRN
[2021-04-07] MEDS: chlordiazePOXIDE HCL 10 MG CAPSULE PO SCH ×4 (05:13→22:06)
[2021-04-07] MEDS: levETIRAcetam 500 MG TABLET (FP) PO SCH ×2 (10:20→22:07)
[2021-04-07] MEDS: PRENATAL VITAMINS W/ FOLIC ACID TABLET (FP) PO SCH (10:20)
[2021-04-07] MEDS: hydrOXYzine PAMOATE 25 MG CAPSULE (FP) PO PRN ×2 (17:57→22:07)
[2021-04-07] MEDS: QUEtiapine FUMARATE 50 MG TABLET PO SCH (22:07)
[2021-04-07] MEDS: MELATONIN 5 MG TABLETS PO SCH (22:07)
[2021-04-07] MEDS: THIAMINE HCL 100 MG TABLET (FP) PO SCH (22:07)
[2021-04-08] MEDS: chlordiazePOXIDE HCL 10 MG CAPSULE PO SCH ×2 (05:25→17:19)
[2021-04-08] MEDS: PRENATAL VITAMINS W/ FOLIC ACID TABLET (FP) PO SCH (10:27)
[2021-04-08] MEDS: levETIRAcetam 500 MG TABLET (FP) PO SCH ×2 (10:27→22:09)
[2021-04-08] MEDS ORDERED: IBUPROFEN 400 MG TABLET (FP) PO PRN (16:40)
[2021-04-08] MEDS: THIAMINE HCL 100 MG TABLET (FP) PO SCH (22:09)
[2021-04-08] MEDS: hydrOXYzine PAMOATE 25 MG CAPSULE (FP) PO PRN (22:09)
[2021-04-08] MEDS: QUEtiapine FUMARATE 50 MG TABLET PO SCH (22:09)
[2021-04-08] MEDS: MELATONIN 5 MG TABLETS PO SCH (22:09)
[2021-04-09] MEDS ORDERED: chlordiazePOXIDE HCL 10 MG CAPSULE PO ONE (05:00)
[2021-04-09] MEDS: hydrOXYzine PAMOATE 25 MG CAPSULE (FP) PO PRN (05:22)
[2021-04-09 08:54] VITALS: BP 120/74; PULSE 86; TEMP 96.4
== END 2021-04-09 09:47 | disposition home or self-care (01) | DRG 775 ==
LOC: YASAS 16:25 → Y3N 23:15
PROVIDERS: ADMIT Allergy & Immunology; ATTEND Allergy & Immunology
PROC: HZ2ZZZZ Detoxification Services for Substance Abuse Treatment (ICD-10-PCS; principal; 2021-04-04)
DX: F10.230 Alcohol dependence with withdrawal, uncomplicated (principal); F10.282 Alcohol dependence with alcohol-induced sleep disorder; F10.24 Alcohol dependence with alcohol-induced mood disorder; G40.909 Epilepsy, unspecified, not intractable, without status epilepticus; A53.0 Latent syphilis, unspecified as early or late; Z86.19 Personal history of other infectious and parasitic diseases; Z87.820 Personal history of traumatic brain injury
CPT/HCPCS: 36415; 80053; 85027; 86593; 86780; C9803; U0003; U0005

== ENCOUNTER 2021-04-19 14:39 | Inpatient (IN) | payer OTHER ==
[2021-04-19] MEDS ORDERED: MAG HYDROX/AL HYDROX/SIMETH 30 ML UNIT-DOSE CUP PO PRN (14:57)
[2021-04-19] MEDS ORDERED: MENTHOL/PHENOL 1 EACH UD MM PRN (14:57)
[2021-04-19] MEDS ORDERED: ONDANSETRON *ODT* 4 MG TABLET SL PRN (14:57)
[2021-04-19] MEDS ORDERED: MAGNESIUM CITRATE 300 ML BOTTLE PO PRN (14:57)
[2021-04-19] MEDS ORDERED: IBUPROFEN 400 MG TABLET (FP) PO PRN (14:57)
[2021-04-19] MEDS ORDERED: BISMUTH SUBSALICYLATE 524 MG/30 ML PO PRN (14:57)
[2021-04-19] MEDS ORDERED: MAGNESIUM HYDROX 2400MG/30ML ORAL SUSPENSION 30 ML CUP PO PRN (14:57)
[2021-04-19] MEDS ORDERED: ACETAMINOPHEN 325 MG TABLET (FP) PO PRN (14:57)
[2021-04-19] MEDS ORDERED: chlordiazePOXIDE HCL 25 MG CAPSULE PO PRN (14:57)
[2021-04-19 15:08] VITALS: BMI 32.5
[2021-04-19] MEDS ORDERED: MELATONIN 5 MG TABLETS PO SCH (22:00)
[2021-04-19] MEDS: levETIRAcetam 500 MG TABLET (FP) PO SCH (23:31)
[2021-04-19] MEDS: hydrOXYzine PAMOATE 25 MG CAPSULE (FP) PO SCH ×2 (23:32→23:38)
[2021-04-19] MEDS: PRENATAL VITAMINS W/ FOLIC ACID TABLET (FP) PO SCH (23:32)
[2021-04-19] MEDS: chlordiazePOXIDE HCL 25 MG CAPSULE PO SCH (23:32)
[2021-04-19] MEDS: THIAMINE HCL 100 MG TABLET (FP) PO SCH (23:32)
[2021-04-20] MEDS: chlordiazePOXIDE HCL 25 MG CAPSULE PO SCH ×4 (05:31→22:28)
[2021-04-20] MEDS: hydrOXYzine PAMOATE 25 MG CAPSULE (FP) PO SCH ×5 (05:31→22:28)
[2021-04-20 10:39] LABS: HEMATOCRIT 40.4 % (35.4-49); HEMOGLOBIN 13.9 GM/dL (11.7-16.9); MCH 30.3 pg (25.7-33.7); MCHC 34.5 g/dl (32.0-35.9); MEAN PLT VOLUME 7.8 fl (7.5-11.1); PLATELET COUNT 141 10^3/uL (134-434); RBC 4.59 M/mm3 (4.00-5.60); WHITE BLOOD COUNT 5.5 K/mm3 (4.0-10.0)
[2021-04-20 10:42] LABS: ALBUMIN 3.6 g/dl (3.4-5.0); CALCIUM 8.7 mg/dL (8.5-10.1)
[2021-04-20] MEDS: levETIRAcetam 500 MG TABLET (FP) PO SCH ×2 (10:44→22:28)
[2021-04-20] MEDS: PRENATAL VITAMINS W/ FOLIC ACID TABLET (FP) PO SCH (10:44)
[2021-04-20 10:46] LABS: CREATININE 0.8 mg/dL (0.55-1.3)
[2021-04-20 10:47] LABS: BILIRUBIN,TOTAL 0.7 mg/dL (0.2-1); TOT PROT 6.8 g/dl (6.4-8.2)
[2021-04-20] MEDS: THIAMINE HCL 100 MG TABLET (FP) PO SCH (22:29)
[2021-04-20] MEDS: SUVOREXANT 10 MG TABLET PO PRN (22:30)
[2021-04-21] MEDS: chlordiazePOXIDE HCL 25 MG CAPSULE PO SCH ×4 (05:47→22:35)
[2021-04-21] MEDS: hydrOXYzine PAMOATE 25 MG CAPSULE (FP) PO SCH ×5 (05:47→22:34)
[2021-04-21] MEDS: levETIRAcetam 500 MG TABLET (FP) PO SCH ×2 (10:37→22:34)
[2021-04-21] MEDS: PRENATAL VITAMINS W/ FOLIC ACID TABLET (FP) PO SCH (10:38)
[2021-04-21] MEDS: THIAMINE HCL 100 MG TABLET (FP) PO SCH (22:34)
[2021-04-22] MEDS ORDERED: chlordiazePOXIDE HCL 10 MG CAPSULE PO PRN
[2021-04-22] MEDS: chlordiazePOXIDE HCL 10 MG CAPSULE PO SCH ×4 (05:46→22:37)
[2021-04-22] MEDS: hydrOXYzine PAMOATE 25 MG CAPSULE (FP) PO SCH ×5 (05:46→22:36)
[2021-04-22] MEDS: PRENATAL VITAMINS W/ FOLIC ACID TABLET (FP) PO SCH (10:43)
[2021-04-22] MEDS: levETIRAcetam 500 MG TABLET (FP) PO SCH ×2 (10:43→22:36)
[2021-04-22] MEDS: METHOCARBAMOL 500 MG TABLET PO PRN (22:36)
[2021-04-22] MEDS: THIAMINE HCL 100 MG TABLET (FP) PO SCH (22:37)
[2021-04-22] MEDS: SUVOREXANT 10 MG TABLET PO PRN (22:43)
[2021-04-23] MEDS: ACETAMINOPHEN 325 MG TABLET (FP) PO PRN (01:31)
[2021-04-23] MEDS: hydrOXYzine PAMOATE 25 MG CAPSULE (FP) PO SCH ×5 (05:39→22:18)
[2021-04-23] MEDS: chlordiazePOXIDE HCL 10 MG CAPSULE PO SCH ×2 (05:39→17:48)
[2021-04-23] MEDS: levETIRAcetam 500 MG TABLET (FP) PO SCH ×2 (11:01→22:18)
[2021-04-23] MEDS: PRENATAL VITAMINS W/ FOLIC ACID TABLET (FP) PO SCH (11:01)
[2021-04-23] MEDS: METHOCARBAMOL 500 MG TABLET PO PRN (22:18)
[2021-04-23] MEDS: THIAMINE HCL 100 MG TABLET (FP) PO SCH (22:18)
[2021-04-24] MEDS: ACETAMINOPHEN 325 MG TABLET (FP) PO PRN (01:09)
[2021-04-24] MEDS ORDERED: chlordiazePOXIDE HCL 10 MG CAPSULE PO ONE (05:00)
[2021-04-24] MEDS: hydrOXYzine PAMOATE 25 MG CAPSULE (FP) PO SCH (06:06)
[2021-04-24 09:03] VITALS: BP 112/78; PULSE 109; TEMP 97.8
== END 2021-04-24 09:38 | disposition home or self-care (01) | DRG 775 ==
LOC: YASAS 14:39 → Y6N 21:29
PROVIDERS: ADMIT Allergy & Immunology; ATTEND Allergy & Immunology
PROC: HZ2ZZZZ Detoxification Services for Substance Abuse Treatment (ICD-10-PCS; principal; 2021-04-19)
DX: F10.230 Alcohol dependence with withdrawal, uncomplicated (principal); F10.282 Alcohol dependence with alcohol-induced sleep disorder; F10.24 Alcohol dependence with alcohol-induced mood disorder; F32.A Depression, unspecified; R56.1 Post traumatic seizures; A53.0 Latent syphilis, unspecified as early or late; Z86.19 Personal history of other infectious and parasitic diseases; Z87.820 Personal history of traumatic brain injury; Z86.59 Personal history of other mental and behavioral disorders
CPT/HCPCS: 36415; 80053; 80177; 85027; 86593; 86780; C9803; U0003; U0005

== ENCOUNTER 2021-05-10 12:47 | Inpatient (IN) | payer OTHER ==
[2021-05-10] MEDS ORDERED: LOPERAMIDE HCL 2 MG CAPSULE PO PRN (13:33)
[2021-05-10] MEDS ORDERED: BISMUTH SUBSALICYLATE 262 MG/15 ML BTL PO PRN (13:33)
[2021-05-10] MEDS ORDERED: ACETAMINOPHEN 325 MG TABLET (FP) PO PRN ×2 (13:33)
[2021-05-10] MEDS ORDERED: MAGNESIUM HYDROX 2400MG/30ML ORAL SUSPENSION 30 ML CUP PO PRN (13:33)
[2021-05-10] MEDS ORDERED: MENTHOL/PHENOL 1 EACH UD MM PRN (13:33)
[2021-05-10] MEDS ORDERED: chlordiazePOXIDE HCL 25 MG CAPSULE PO PRN (13:33)
[2021-05-10] MEDS ORDERED: ONDANSETRON *ODT* 4 MG TABLET SL PRN (13:33)
[2021-05-10] MEDS ORDERED: IBUPROFEN 400 MG TABLET (FP) PO PRN (13:33)
[2021-05-10] MEDS ORDERED: MAG HYDROX/AL HYDROX/SIMETH 30 ML UNIT-DOSE CUP PO PRN (13:33)
[2021-05-10] MEDS ORDERED: MAGNESIUM CITRATE 300 ML BOTTLE PO PRN (13:33)
[2021-05-10 14:35] VITALS: BMI 33.0
[2021-05-10] MEDS ORDERED: amLODIPine BESYLATE 2.5 MG TABLET (FP) PO ONE (15:20)
[2021-05-10] MEDS ORDERED: levETIRAcetam 500 MG TABLET (FP) PO ONE (15:20)
[2021-05-10] MEDS: chlordiazePOXIDE HCL 25 MG CAPSULE PO SCH ×2 (16:30→22:19)
[2021-05-10] MEDS: hydrOXYzine PAMOATE 25 MG CAPSULE (FP) PO SCH ×3 (16:31→22:19)
[2021-05-10] MEDS: PRENATAL VITAMINS W/ FOLIC ACID TABLET (FP) PO SCH (18:06)
[2021-05-10] MEDS: MELATONIN 5 MG TABLETS PO SCH (22:19)
[2021-05-10] MEDS: THIAMINE HCL 100 MG TABLET (FP) PO SCH (22:19)
[2021-05-10] MEDS: QUEtiapine FUMARATE 100 MG TABLET (FP) PO SCH (22:19)
[2021-05-10] MEDS: levETIRAcetam 500 MG TABLET (FP) PO SCH (22:19)
[2021-05-11] MEDS: chlordiazePOXIDE HCL 25 MG CAPSULE PO SCH ×4 (05:39→22:02)
[2021-05-11] MEDS: hydrOXYzine PAMOATE 25 MG CAPSULE (FP) PO SCH ×5 (05:40→22:03)
[2021-05-11] MEDS: PRENATAL VITAMINS W/ FOLIC ACID TABLET (FP) PO SCH (10:22)
[2021-05-11] MEDS: levETIRAcetam 500 MG TABLET (FP) PO SCH ×2 (10:22→22:03)
[2021-05-11 12:03] LABS: HEMOGLOBIN 12.9 GM/dL (11.7-16.9); MEAN CELL VOLUME 88.3 fl (80-96); MEAN PLT VOLUME 8.1 fl (7.5-11.1); PLATELET COUNT 133 10^3/uL (134-434); RDW 15.8 % (11.9-15.9); WHITE BLOOD COUNT 3.9 K/mm3 (4.0-10.0)
[2021-05-11 12:19] LABS: ALBUMIN 3.5 g/dl (3.4-5.0); BLOOD UREA NITROGEN 8.8 mg/dL (7-18); CALCIUM 8.7 mg/dL (8.5-10.1)
[2021-05-11 12:22] LABS: CREATININE 0.7 mg/dL (0.55-1.3)
[2021-05-11 12:24] LABS: BILIRUBIN,TOTAL 0.4 mg/dL (0.2-1); TOT PROT 6.5 g/dl (6.4-8.2)
[2021-05-11] MEDS: THIAMINE HCL 100 MG TABLET (FP) PO SCH (22:03)
[2021-05-11] MEDS: POTASSIUM CHLORIDE ORAL LIQUID 20 MEQ/15 ML PO SCH (22:03)
[2021-05-11] MEDS: MELATONIN 5 MG TABLETS PO SCH (22:03)
[2021-05-11] MEDS: QUEtiapine FUMARATE 100 MG TABLET (FP) PO SCH (22:03)
[2021-05-12] MEDS: chlordiazePOXIDE HCL 25 MG CAPSULE PO SCH ×4 (05:23→22:10)
[2021-05-12] MEDS: hydrOXYzine PAMOATE 25 MG CAPSULE (FP) PO SCH ×5 (05:24→22:10)
[2021-05-12] MEDS: POTASSIUM CHLORIDE ORAL LIQUID 20 MEQ/15 ML PO SCH ×2 (10:16→22:09)
[2021-05-12] MEDS: levETIRAcetam 500 MG TABLET (FP) PO SCH ×2 (10:17→22:10)
[2021-05-12] MEDS: PRENATAL VITAMINS W/ FOLIC ACID TABLET (FP) PO SCH (10:18)
[2021-05-12 14:07] LABS: SARS-CoV-2 NAA Not Detected (Not Detected)
[2021-05-12] MEDS: THIAMINE HCL 100 MG TABLET (FP) PO SCH (22:10)
[2021-05-12] MEDS: QUEtiapine FUMARATE 100 MG TABLET (FP) PO SCH (22:10)
[2021-05-12] MEDS: MELATONIN 5 MG TABLETS PO SCH (22:11)
[2021-05-13] MEDS ORDERED: chlordiazePOXIDE HCL 10 MG CAPSULE PO PRN
[2021-05-13] MEDS: chlordiazePOXIDE HCL 10 MG CAPSULE PO SCH ×4 (06:06→22:16)
[2021-05-13] MEDS: hydrOXYzine PAMOATE 25 MG CAPSULE (FP) PO SCH ×4 (06:06→17:06)
[2021-05-13] MEDS: PRENATAL VITAMINS W/ FOLIC ACID TABLET (FP) PO SCH (10:34)
[2021-05-13] MEDS: levETIRAcetam 500 MG TABLET (FP) PO SCH ×2 (10:34→22:19)
[2021-05-13] MEDS: METHOCARBAMOL 500 MG TABLET PO PRN ×2 (10:35→22:16)
[2021-05-13] MEDS: MELATONIN 5 MG TABLETS PO SCH (22:16)
[2021-05-13] MEDS: QUEtiapine FUMARATE 100 MG TABLET (FP) PO SCH (22:16)
[2021-05-13] MEDS: THIAMINE HCL 100 MG TABLET (FP) PO SCH (22:19)
[2021-05-14] MEDS: hydrOXYzine PAMOATE 25 MG CAPSULE (FP) PO SCH ×6 (01:00→22:21)
[2021-05-14] MEDS: chlordiazePOXIDE HCL 10 MG CAPSULE PO SCH ×2 (05:54→17:34)
[2021-05-14] MEDS: levETIRAcetam 500 MG TABLET (FP) PO SCH ×2 (11:01→22:21)
[2021-05-14] MEDS: PRENATAL VITAMINS W/ FOLIC ACID TABLET (FP) PO SCH (11:01)
[2021-05-14] MEDS: MELATONIN 5 MG TABLETS PO SCH (22:20)
[2021-05-14] MEDS: QUEtiapine FUMARATE 100 MG TABLET (FP) PO SCH (22:21)
[2021-05-14] MEDS: THIAMINE HCL 100 MG TABLET (FP) PO SCH (22:21)
[2021-05-15] MEDS ORDERED: chlordiazePOXIDE HCL 10 MG CAPSULE PO ONE (05:00)
[2021-05-15] MEDS: hydrOXYzine PAMOATE 25 MG CAPSULE (FP) PO SCH ×2 (06:11→10:28)
[2021-05-15] MEDS: levETIRAcetam 500 MG TABLET (FP) PO SCH (10:28)
[2021-05-15] MEDS: PRENATAL VITAMINS W/ FOLIC ACID TABLET (FP) PO SCH (10:29)
[2021-05-15 13:03] VITALS: BP 109/67; PULSE 88; TEMP 98.2
== END 2021-05-15 13:28 | disposition other institution (70) | DRG 775 ==
LOC: YASAS 12:47 → Y3N 14:40
PROVIDERS: ADMIT Allergy & Immunology; ATTEND Allergy & Immunology
PROC: HZ2ZZZZ Detoxification Services for Substance Abuse Treatment (ICD-10-PCS; principal; 2021-05-10)
DX: F10.230 Alcohol dependence with withdrawal, uncomplicated (principal); F31.9 Bipolar disorder, unspecified; F10.24 Alcohol dependence with alcohol-induced mood disorder; F41.9 Anxiety disorder, unspecified; A53.0 Latent syphilis, unspecified as early or late; E87.6 Hypokalemia; G40.909 Epilepsy, unspecified, not intractable, without status epilepticus; G47.00 Insomnia, unspecified; R74.01 Elevation of levels of liver transaminase levels; Z86.59 Personal history of other mental and behavioral disorders; Z86.19 Personal history of other infectious and parasitic diseases; Z91.51 Personal history of suicidal behavior
CPT/HCPCS: 36415; 80053; 84132; 84450; 84460; 85027; 86593; 86780; C9803; U0003; U0005

== ENCOUNTER 2021-05-15 13:49 | Inpatient (IN) | payer OTHER ==
[2021-05-15] MEDS ORDERED: LOPERAMIDE HCL 2 MG CAPSULE PO PRN (14:57)
[2021-05-15] MEDS ORDERED: MAG HYDROX/AL HYDROX/SIMETH 30 ML UNIT-DOSE CUP PO PRN (14:57)
[2021-05-15] MEDS ORDERED: MAGNESIUM CITRATE 300 ML BOTTLE PO PRN (14:57)
[2021-05-15] MEDS ORDERED: P-EPHED 60MG/TRIPROLIDI 2.5MG TABLET PO PRN (14:57)
[2021-05-15] MEDS ORDERED: NICOTINE 10 MG CARTRIDGE (INHALER) IH PRN (14:57)
[2021-05-15] MEDS ORDERED: guaiFENesin 200 MG/10 ML 10 ML UNIT-DOSE CUPS PO PRN (14:57)
[2021-05-15] MEDS ORDERED: MENTHOL/PHENOL 1 EACH UD MM PRN (14:57)
[2021-05-15] MEDS ORDERED: ACETAMINOPHEN 325 MG TABLET (FP) PO PRN (14:57)
[2021-05-15] MEDS ORDERED: MAGNESIUM HYDROX 2400MG/30ML ORAL SUSPENSION 30 ML CUP PO PRN (14:57)
[2021-05-15] MEDS: MELATONIN 5 MG TABLETS PO SCH (21:14)
[2021-05-15] MEDS: THIAMINE HCL 100 MG TABLET (FP) PO SCH (21:14)
[2021-05-15] MEDS: levETIRAcetam 500 MG TABLET (FP) PO SCH (21:14)
[2021-05-15] MEDS: QUEtiapine FUMARATE 100 MG TABLET (FP) PO SCH (21:14)
[2021-05-16] MEDS: levETIRAcetam 500 MG TABLET (FP) PO SCH ×2 (09:33→21:40)
[2021-05-16] MEDS: PRENATAL VITAMINS W/ FOLIC ACID TABLET (FP) PO SCH (09:34)
[2021-05-16] MEDS ORDERED: NICOTINE 7 MG/24 HOURS TOPICAL PATCH TD SCH (10:00)
[2021-05-16] MEDS: QUEtiapine FUMARATE 100 MG TABLET (FP) PO SCH (21:41)
[2021-05-16] MEDS: MELATONIN 5 MG TABLETS PO SCH (21:41)
[2021-05-16] MEDS: THIAMINE HCL 100 MG TABLET (FP) PO SCH (21:41)
[2021-05-17] MEDS: levETIRAcetam 500 MG TABLET (FP) PO SCH ×2 (09:35→21:51)
[2021-05-17] MEDS: PRENATAL VITAMINS W/ FOLIC ACID TABLET (FP) PO SCH (09:35)
[2021-05-17] MEDS: THIAMINE HCL 100 MG TABLET (FP) PO SCH (21:51)
[2021-05-17] MEDS: QUEtiapine FUMARATE 100 MG TABLET (FP) PO SCH (21:51)
[2021-05-17] MEDS: MELATONIN 5 MG TABLETS PO SCH (21:51)
[2021-05-18] MEDS: PRENATAL VITAMINS W/ FOLIC ACID TABLET (FP) PO SCH (09:35)
[2021-05-18] MEDS: levETIRAcetam 500 MG TABLET (FP) PO SCH ×2 (09:35→21:03)
[2021-05-18] MEDS: TETRAHYDROZOLINE HCL EYE DROPS OD PRN (09:35)
[2021-05-18] MEDS: IBUPROFEN 400 MG TABLET (FP) PO PRN (09:37)
[2021-05-18] MEDS: QUEtiapine FUMARATE 100 MG TABLET (FP) PO SCH (21:03)
[2021-05-18] MEDS: THIAMINE HCL 100 MG TABLET (FP) PO SCH (21:03)
[2021-05-18] MEDS: MELATONIN 5 MG TABLETS PO SCH (21:03)
[2021-05-19] MEDS: PRENATAL VITAMINS W/ FOLIC ACID TABLET (FP) PO SCH (09:10)
[2021-05-19] MEDS: levETIRAcetam 500 MG TABLET (FP) PO SCH ×2 (09:10→21:35)
[2021-05-19 14:11] LABS: SARS-CoV-2 NAA Not Detected (Not Detected)
[2021-05-19] MEDS: IBUPROFEN 400 MG TABLET (FP) PO PRN (17:11)
[2021-05-19] MEDS: MELATONIN 5 MG TABLETS PO SCH (21:35)
[2021-05-19] MEDS: QUEtiapine FUMARATE 100 MG TABLET (FP) PO SCH (21:35)
[2021-05-19] MEDS: THIAMINE HCL 100 MG TABLET (FP) PO SCH (21:35)
[2021-05-20] MEDS: PRENATAL VITAMINS W/ FOLIC ACID TABLET (FP) PO SCH (09:35)
[2021-05-20] MEDS: levETIRAcetam 500 MG TABLET (FP) PO SCH ×2 (09:35→21:01)
[2021-05-20] MEDS: THIAMINE HCL 100 MG TABLET (FP) PO SCH (21:01)
[2021-05-20] MEDS: QUEtiapine FUMARATE 100 MG TABLET (FP) PO SCH (21:01)
[2021-05-20] MEDS: MELATONIN 5 MG TABLETS PO SCH (21:01)
[2021-05-21] MEDS: levETIRAcetam 500 MG TABLET (FP) PO SCH ×2 (09:56→21:34)
[2021-05-21] MEDS: PRENATAL VITAMINS W/ FOLIC ACID TABLET (FP) PO SCH (09:56)
[2021-05-21 11:36] LABS: CALCIUM 8.6 mg/dL (8.5-10.1)
[2021-05-21 11:37] LABS: ALBUMIN 3.4 g/dl (3.4-5.0)
[2021-05-21 11:40] LABS: CREATININE 0.8 mg/dL (0.55-1.3)
[2021-05-21 11:42] LABS: BILIRUBIN,TOTAL 0.5 mg/dL (0.2-1); TOT PROT 6.6 g/dl (6.4-8.2)
[2021-05-21] MEDS: QUEtiapine FUMARATE 100 MG TABLET (FP) PO SCH (21:34)
[2021-05-21] MEDS: THIAMINE HCL 100 MG TABLET (FP) PO SCH (21:34)
[2021-05-21] MEDS: MELATONIN 5 MG TABLETS PO SCH (21:35)
[2021-05-22] MEDS: TETRAHYDROZOLINE HCL EYE DROPS OD PRN (10:09)
[2021-05-22] MEDS: levETIRAcetam 500 MG TABLET (FP) PO SCH ×2 (10:09→21:28)
[2021-05-22] MEDS: PRENATAL VITAMINS W/ FOLIC ACID TABLET (FP) PO SCH (10:09)
[2021-05-22] MEDS: IBUPROFEN 400 MG TABLET (FP) PO PRN (19:11)
[2021-05-22] MEDS: MELATONIN 5 MG TABLETS PO SCH (21:28)
[2021-05-22] MEDS: QUEtiapine FUMARATE 100 MG TABLET (FP) PO SCH (21:28)
[2021-05-22] MEDS: THIAMINE HCL 100 MG TABLET (FP) PO SCH (21:28)
[2021-05-23] MEDS: PRENATAL VITAMINS W/ FOLIC ACID TABLET (FP) PO SCH (09:49)
[2021-05-23] MEDS: levETIRAcetam 500 MG TABLET (FP) PO SCH ×2 (09:49→21:26)
[2021-05-23] MEDS: TETRAHYDROZOLINE HCL EYE DROPS OD PRN (09:49)
[2021-05-23] MEDS: THIAMINE HCL 100 MG TABLET (FP) PO SCH (21:25)
[2021-05-23] MEDS: MELATONIN 5 MG TABLETS PO SCH (21:25)
[2021-05-23] MEDS: QUEtiapine FUMARATE 100 MG TABLET (FP) PO SCH (21:26)
[2021-05-24] MEDS: levETIRAcetam 500 MG TABLET (FP) PO SCH ×2 (09:19→21:33)
[2021-05-24] MEDS: PRENATAL VITAMINS W/ FOLIC ACID TABLET (FP) PO SCH (09:19)
[2021-05-24] MEDS: THIAMINE HCL 100 MG TABLET (FP) PO SCH (21:32)
[2021-05-24] MEDS: MELATONIN 5 MG TABLETS PO SCH (21:32)
[2021-05-24] MEDS: QUEtiapine FUMARATE 100 MG TABLET (FP) PO SCH (21:33)
[2021-05-25] MEDS: levETIRAcetam 500 MG TABLET (FP) PO SCH ×2 (09:22→21:52)
[2021-05-25] MEDS: PRENATAL VITAMINS W/ FOLIC ACID TABLET (FP) PO SCH (09:22)
[2021-05-25] MEDS ORDERED: MODERNA COVID-19 VACC,MRNA/PF 100 MCG/0.5 ML IM ONE (10:00)
[2021-05-25] MEDS: THIAMINE HCL 100 MG TABLET (FP) PO SCH (21:52)
[2021-05-25] MEDS: QUEtiapine FUMARATE 50 MG TABLET PO SCH (21:53)
[2021-05-26] MEDS: TETRAHYDROZOLINE HCL EYE DROPS OD PRN ×2 (09:45→21:48)
[2021-05-26] MEDS: levETIRAcetam 500 MG TABLET (FP) PO SCH ×2 (09:45→21:46)
[2021-05-26] MEDS: PRENATAL VITAMINS W/ FOLIC ACID TABLET (FP) PO SCH (09:45)
[2021-05-26] MEDS: QUEtiapine FUMARATE 50 MG TABLET PO SCH (21:46)
[2021-05-26] MEDS: THIAMINE HCL 100 MG TABLET (FP) PO SCH (21:46)
[2021-05-27] MEDS: levETIRAcetam 500 MG TABLET (FP) PO SCH ×2 (10:07→21:05)
[2021-05-27] MEDS: PRENATAL VITAMINS W/ FOLIC ACID TABLET (FP) PO SCH (10:07)
[2021-05-27] MEDS: hydrOXYzine PAMOATE 25 MG CAPSULE (FP) PO PRN (15:44)
[2021-05-27] MEDS: IBUPROFEN 400 MG TABLET (FP) PO PRN (15:45)
[2021-05-27] MEDS: QUEtiapine FUMARATE 50 MG TABLET PO SCH (21:05)
[2021-05-27] MEDS: THIAMINE HCL 100 MG TABLET (FP) PO SCH (21:05)
[2021-05-27] MEDS: TETRAHYDROZOLINE HCL EYE DROPS OD PRN (21:06)
[2021-05-28 09:42] LABS: BLOOD UREA NITROGEN 10.8 mg/dL (7-18); CALCIUM 8.8 mg/dL (8.5-10.1)
[2021-05-28 09:43] LABS: ALBUMIN 3.8 g/dl (3.4-5.0)
[2021-05-28 09:46] LABS: CREATININE 0.8 mg/dL (0.55-1.3)
[2021-05-28 09:47] LABS: BILIRUBIN,TOTAL 0.5 mg/dL (0.2-1); TOT PROT 7.5 g/dl (6.4-8.2)
[2021-05-28] MEDS: levETIRAcetam 500 MG TABLET (FP) PO SCH ×2 (09:51→21:33)
[2021-05-28] MEDS: PRENATAL VITAMINS W/ FOLIC ACID TABLET (FP) PO SCH (09:51)
[2021-05-28] MEDS: IBUPROFEN 400 MG TABLET (FP) PO PRN ×2 (09:52→17:56)
[2021-05-28] MEDS: hydrOXYzine PAMOATE 25 MG CAPSULE (FP) PO PRN (19:49)
[2021-05-28] MEDS: THIAMINE HCL 100 MG TABLET (FP) PO SCH (21:33)
[2021-05-28] MEDS: QUEtiapine FUMARATE 50 MG TABLET PO SCH (21:34)
[2021-05-29 06:48] VITALS: BP 109/75; PULSE 68; TEMP 96.6
[2021-05-29] MEDS: levETIRAcetam 500 MG TABLET (FP) PO SCH (09:07)
[2021-05-29] MEDS: PRENATAL VITAMINS W/ FOLIC ACID TABLET (FP) PO SCH (09:08)
[2021-05-29] MEDS: hydrOXYzine PAMOATE 25 MG CAPSULE (FP) PO PRN (09:09)
== END 2021-05-29 09:40 | disposition home or self-care (01) | DRG 772 ==
LOC: YASAS 13:49 → Y3E 13:51
PROVIDERS: ADMIT Allergy & Immunology; ATTEND Allergy & Immunology
PROC: HZ42ZZZ Group Counseling for Substance Abuse Treatment, Cognitive-Behavioral (ICD-10-PCS; principal; 2021-05-15)
DX: F10.20 Alcohol dependence, uncomplicated (principal); F10.24 Alcohol dependence with alcohol-induced mood disorder; F32.3 Major depressive disorder, single episode, severe with psychotic features; G40.909 Epilepsy, unspecified, not intractable, without status epilepticus; R74.01 Elevation of levels of liver transaminase levels; Z87.820 Personal history of traumatic brain injury; Z86.19 Personal history of other infectious and parasitic diseases
CPT/HCPCS: 36415; 80053; 80177; C9803; U0003; U0005

== ENCOUNTER 2021-07-25 15:02 | Inpatient (IN) | payer OTHER ==
[2021-07-25 16:44] VITALS: BMI 32.1
[2021-07-25] MEDS ORDERED: MAGNESIUM HYDROX 2400MG/30ML ORAL SUSPENSION 30 ML CUP PO PRN (17:27)
[2021-07-25] MEDS ORDERED: BENZOCAINE/MENTHOL (CHLORASEPTIC ) LOZENGE MM PRN (17:27)
[2021-07-25] MEDS ORDERED: DICYCLOMINE HCL 10 MG CAPSULE PO PRN (17:27)
[2021-07-25] MEDS ORDERED: IBUPROFEN 400 MG TABLET (FP) PO PRN (17:27)
[2021-07-25] MEDS ORDERED: MAGNESIUM CITRATE 300 ML BOTTLE PO PRN (17:27)
[2021-07-25] MEDS ORDERED: LOPERAMIDE HCL 2 MG CAPSULE PO PRN (17:27)
[2021-07-25] MEDS ORDERED: ONDANSETRON *ODT* 4 MG TABLET SL PRN (17:27)
[2021-07-25] MEDS ORDERED: BISMUTH SUBSALICYLATE 524 MG/30 ML PO PRN (17:27)
[2021-07-25] MEDS ORDERED: MAG HYDROX/AL HYDROX/SIMETH 30 ML UNIT-DOSE CUP PO PRN (17:27)
[2021-07-25] MEDS ORDERED: hydrOXYzine PAMOATE 25 MG CAPSULE (FP) PO PRN (17:27)
[2021-07-25] MEDS ORDERED: ACETAMINOPHEN 325 MG TABLET (FP) PO PRN (17:27)
[2021-07-25] MEDS ORDERED: chlordiazePOXIDE HCL 25 MG CAPSULE PO ONE (17:30)
[2021-07-25] MEDS ORDERED: chlordiazePOXIDE HCL 25 MG CAPSULE PO PRN (17:30)
[2021-07-25] MEDS: METHOCARBAMOL 500 MG TABLET PO PRN (20:40)
[2021-07-25] MEDS: chlordiazePOXIDE HCL 25 MG CAPSULE PO SCH (23:33)
[2021-07-25] MEDS: levETIRAcetam 500 MG TABLET (FP) PO SCH (23:33)
[2021-07-25] MEDS: THIAMINE HCL 100 MG TABLET (FP) PO SCH (23:33)
[2021-07-25] MEDS: MELATONIN 5 MG TABLETS PO PRN (23:34)
[2021-07-26] MEDS: chlordiazePOXIDE HCL 25 MG CAPSULE PO SCH ×4 (05:42→22:35)
[2021-07-26] MEDS: levETIRAcetam 500 MG TABLET (FP) PO SCH ×2 (10:22→22:32)
[2021-07-26] MEDS: PRENATAL VITAMINS W/ FOLIC ACID TABLET (FP) PO SCH (10:22)
[2021-07-26] MEDS: METHOCARBAMOL 500 MG TABLET PO PRN ×2 (10:22→22:35)
[2021-07-26 13:55] LABS: HEMATOCRIT 40.6 % (35.4-49); HEMOGLOBIN 13.6 GM/dL (11.7-16.9); MCH 29.2 pg (25.7-33.7); MCHC 33.5 g/dl (32.0-35.9); MEAN CELL VOLUME 87.2 fl (80-96); MEAN PLT VOLUME 10.1 fl (7.5-11.1); PLATELET COUNT 175 10^3/uL (134-434); RBC 4.65 M/mm3 (4.00-5.60); RDW 13.9 % (11.9-15.9); WHITE BLOOD COUNT 5.4 K/mm3 (4.0-10.0)
[2021-07-26 14:36] LABS: CALCIUM 9.2 mg/dL (8.5-10.1)
[2021-07-26 14:37] LABS: ALBUMIN 3.4 g/dl (3.4-5.0); BLOOD UREA NITROGEN 12.5 mg/dL (7-18)
[2021-07-26 14:39] LABS: CREATININE 0.7 mg/dL (0.55-1.3)
[2021-07-26 14:42] LABS: TOT PROT 6.6 g/dl (6.4-8.2)
[2021-07-26 14:53] LABS: BILIRUBIN,TOTAL 0.7 mg/dL (0.2-1)
[2021-07-26] MEDS: MELATONIN 5 MG TABLETS PO PRN (22:34)
[2021-07-26] MEDS: THIAMINE HCL 100 MG TABLET (FP) PO SCH (22:35)
[2021-07-27] MEDS: chlordiazePOXIDE HCL 25 MG CAPSULE PO SCH ×4 (05:47→22:23)
[2021-07-27] MEDS: levETIRAcetam 500 MG TABLET (FP) PO SCH ×2 (11:04→22:21)
[2021-07-27] MEDS: PRENATAL VITAMINS W/ FOLIC ACID TABLET (FP) PO SCH (11:04)
[2021-07-27] MEDS: ACETAMINOPHEN 325 MG TABLET (FP) PO PRN (18:08)
[2021-07-27] MEDS: THIAMINE HCL 100 MG TABLET (FP) PO SCH (22:21)
[2021-07-27] MEDS: QUEtiapine FUMARATE 50 MG TABLET PO SCH (22:21)
[2021-07-27] MEDS: METHOCARBAMOL 500 MG TABLET PO PRN (22:22)
[2021-07-28] MEDS ORDERED: chlordiazePOXIDE HCL 10 MG CAPSULE PO PRN
[2021-07-28] MEDS: chlordiazePOXIDE HCL 10 MG CAPSULE PO SCH ×4 (05:56→22:11)
[2021-07-28] MEDS: PRENATAL VITAMINS W/ FOLIC ACID TABLET (FP) PO SCH (10:33)
[2021-07-28] MEDS: levETIRAcetam 500 MG TABLET (FP) PO SCH ×2 (10:33→22:11)
[2021-07-28 14:10] LABS: SARS-CoV-2 NAA Not Detected (Not Detected)
[2021-07-28] MEDS: ACETAMINOPHEN 325 MG TABLET (FP) PO PRN ×2 (14:56→18:10)
[2021-07-28] MEDS: THIAMINE HCL 100 MG TABLET (FP) PO SCH (22:11)
[2021-07-28] MEDS: QUEtiapine FUMARATE 50 MG TABLET PO SCH (22:11)
[2021-07-28] MEDS: MELATONIN 5 MG TABLETS PO PRN (22:13)
[2021-07-29] MEDS ORDERED: chlordiazePOXIDE HCL 10 MG CAPSULE PO SCH (05:00)
[2021-07-29 06:14] VITALS: BP 106/77; PULSE 56; TEMP 97.4
[2021-07-29] MEDS: PRENATAL VITAMINS W/ FOLIC ACID TABLET (FP) PO SCH (10:16)
[2021-07-29] MEDS: levETIRAcetam 500 MG TABLET (FP) PO SCH (10:16)
[2021-07-30] MEDS ORDERED: chlordiazePOXIDE HCL 10 MG CAPSULE PO ONE (05:00)
== END 2021-07-29 12:03 | disposition home or self-care (01) | DRG 775 ==
LOC: YASAS 15:02 → Y3N 18:59
PROVIDERS: ADMIT Allergy & Immunology; ATTEND Surgery
PROC: HZ2ZZZZ Detoxification Services for Substance Abuse Treatment (ICD-10-PCS; principal; 2021-07-25)
DX: F10.230 Alcohol dependence with withdrawal, uncomplicated (principal); F17.210 Nicotine dependence, cigarettes, uncomplicated; F10.24 Alcohol dependence with alcohol-induced mood disorder; F33.3 Major depressive disorder, recurrent, severe with psychotic symptoms; G40.909 Epilepsy, unspecified, not intractable, without status epilepticus
CPT/HCPCS: 36415; 80053; 85027; 86593; 86780; C9803-CS; Q0162; U0003; U0005

== ENCOUNTER 2021-10-16 13:03 | Inpatient (IN) | payer OTHER ==
[2021-10-16 14:05] VITALS: BMI 30.4
[2021-10-16] MEDS ORDERED: DICYCLOMINE HCL 10 MG CAPSULE PO PRN (15:02)
[2021-10-16] MEDS ORDERED: IBUPROFEN 600 MG TABLET (FP) PO PRN (15:02)
[2021-10-16] MEDS ORDERED: MAG HYDROX/AL HYDROX/SIMETH 30 ML UNIT-DOSE CUP PO PRN (15:02)
[2021-10-16] MEDS ORDERED: BISMUTH SUBSALICYLATE 262 MG/15 ML BTL PO PRN (15:02)
[2021-10-16] MEDS ORDERED: NICOTINE 10 MG CARTRIDGE (INHALER) IH PRN (15:02)
[2021-10-16] MEDS ORDERED: IBUPROFEN 400 MG TABLET (FP) PO PRN (15:02)
[2021-10-16] MEDS ORDERED: MAGNESIUM CITRATE 300 ML BOTTLE PO PRN (15:02)
[2021-10-16] MEDS ORDERED: MAGNESIUM HYDROX 2400MG/30ML ORAL SUSPENSION 30 ML CUP PO PRN (15:02)
[2021-10-16] MEDS ORDERED: LOPERAMIDE HCL 2 MG CAPSULE PO PRN (15:02)
[2021-10-16] MEDS ORDERED: BENZOCAINE/MENTHOL (CHLORASEPTIC ) LOZENGE MM PRN (15:02)
[2021-10-16] MEDS ORDERED: ONDANSETRON *ODT* 4 MG TABLET SL PRN (15:02)
[2021-10-16] MEDS ORDERED: THIAMINE HCL 200 MG/2 ML VIAL IM ONE (15:29)
[2021-10-16] MEDS ORDERED: MAGNESIUM OXIDE 400 MG TABLET (FP) PO ONE (15:30)
[2021-10-16] MEDS ORDERED: diazePAM 5 MG TABLET ONE (15:37)
[2021-10-16] MEDS: diazePAM 5 MG TABLET PO SCH ×2 (15:39→22:25)
[2021-10-16] MEDS: METHOCARBAMOL 500 MG TABLET PO PRN (16:43)
[2021-10-16] MEDS: diazePAM 5 MG TABLET PO PRN (17:48)
[2021-10-16] MEDS: hydrOXYzine PAMOATE 25 MG CAPSULE (FP) PO SCH ×2 (17:49→22:25)
[2021-10-16] MEDS ORDERED: QUEtiapine FUMARATE 50 MG TABLET PO ONE (22:00)
[2021-10-16] MEDS ORDERED: THIAMINE HCL 100 MG TABLET (FP) PO SCH (22:00)
[2021-10-16] MEDS: MELATONIN 5 MG TABLETS PO SCH (22:24)
[2021-10-16] MEDS: THIAMINE HCL 100 MG TABLET (FP) PO SCH (22:25)
[2021-10-16] MEDS: levETIRAcetam 500 MG TABLET (FP) PO SCH (22:25)
[2021-10-17] MEDS: diazePAM 5 MG TABLET PO SCH ×5 (04:00→22:39)
[2021-10-17] MEDS: METHOCARBAMOL 500 MG TABLET PO PRN (04:43)
[2021-10-17] MEDS: hydrOXYzine PAMOATE 25 MG CAPSULE (FP) PO SCH ×5 (06:01→22:38)
[2021-10-17] MEDS: diazePAM 5 MG TABLET PO PRN ×2 (08:12→17:25)
[2021-10-17] MEDS: levETIRAcetam 500 MG TABLET (FP) PO SCH ×2 (10:35→22:38)
[2021-10-17] MEDS: PRENATAL VITAMINS W/ FOLIC ACID TABLET (FP) PO SCH (10:35)
[2021-10-17 11:10] LABS: HEMATOCRIT 42.6 % (35.4-49); HEMOGLOBIN 14.8 GM/dL (11.7-16.9); MCH 29.8 pg (25.7-33.7); MCHC 34.7 g/dl (32.0-35.9); MEAN CELL VOLUME 85.9 fl (80-96); MEAN PLT VOLUME 8.2 fl (7.5-11.1); PLATELET COUNT 188 10^3/uL (134-434); RBC 4.96 M/mm3 (4.00-5.60); RDW 14.4 % (11.9-15.9)
[2021-10-17] MEDS: THIAMINE HCL 100 MG TABLET (FP) PO SCH ×2 (11:14→22:38)
[2021-10-17 11:26] LABS: BLOOD UREA NITROGEN 11.9 mg/dL (7-18)
[2021-10-17 11:29] LABS: CREATININE 0.7 mg/dL (0.55-1.3)
[2021-10-17 11:30] LABS: BILIRUBIN,TOTAL 1.1 mg/dL (0.2-1); TOT PROT 7.3 g/dl (6.4-8.2)
[2021-10-17] MEDS: QUEtiapine FUMARATE 50 MG TABLET PO SCH (22:38)
[2021-10-17] MEDS: MELATONIN 5 MG TABLETS PO SCH (22:39)
[2021-10-18] MEDS: diazePAM 5 MG TABLET PO SCH ×3 (05:34→22:49)
[2021-10-18] MEDS: hydrOXYzine PAMOATE 25 MG CAPSULE (FP) PO SCH ×5 (05:34→22:50)
[2021-10-18] MEDS: PRENATAL VITAMINS W/ FOLIC ACID TABLET (FP) PO SCH (10:42)
[2021-10-18] MEDS: THIAMINE HCL 100 MG TABLET (FP) PO SCH ×2 (10:42→22:49)
[2021-10-18] MEDS: levETIRAcetam 500 MG TABLET (FP) PO SCH ×2 (10:43→22:48)
[2021-10-18] MEDS: diazePAM 5 MG TABLET PO PRN (10:44)
[2021-10-18] MEDS: QUEtiapine FUMARATE 50 MG TABLET PO SCH (22:49)
[2021-10-18] MEDS: MELATONIN 5 MG TABLETS PO SCH (22:50)
[2021-10-19] MEDS: hydrOXYzine PAMOATE 25 MG CAPSULE (FP) PO SCH ×3 (05:34→14:45)
[2021-10-19] MEDS ORDERED: diazePAM 5 MG TABLET PO SCH (06:00)
[2021-10-19 09:25] VITALS: RESP 17
[2021-10-19] MEDS: levETIRAcetam 500 MG TABLET (FP) PO SCH (10:43)
[2021-10-19] MEDS: PRENATAL VITAMINS W/ FOLIC ACID TABLET (FP) PO SCH (10:43)
[2021-10-19] MEDS: THIAMINE HCL 100 MG TABLET (FP) PO SCH (10:44)
[2021-10-19 13:12] VITALS: BP 133/73; PULSE 98; TEMP 97.3
[2021-10-20] MEDS ORDERED: diazePAM 5 MG TABLET PO ONE (06:00)
== END 2021-10-19 15:45 | disposition home or self-care (01) | DRG 775 ==
LOC: YASAS 13:03 → Y6N 15:43
PROVIDERS: ADMIT Allergy & Immunology; ATTEND Surgery
PROC: HZ2ZZZZ Detoxification Services for Substance Abuse Treatment (ICD-10-PCS; principal; 2021-10-16)
DX: F10.230 Alcohol dependence with withdrawal, uncomplicated (principal); F10.24 Alcohol dependence with alcohol-induced mood disorder; F10.282 Alcohol dependence with alcohol-induced sleep disorder; F33.3 Major depressive disorder, recurrent, severe with psychotic symptoms; G40.909 Epilepsy, unspecified, not intractable, without status epilepticus; R74.01 Elevation of levels of liver transaminase levels; G47.00 Insomnia, unspecified; R76.8 Other specified abnormal immunological findings in serum; R00.0 Tachycardia, unspecified; Z87.820 Personal history of traumatic brain injury; Z86.19 Personal history of other infectious and parasitic diseases; Z91.51 Personal history of suicidal behavior; Z56.0 Unemployment, unspecified
CPT/HCPCS: 36415; 80053; 85027; 86593; 86780; C9803-CS; U0003; U0005